=== PATIENT | male | born 1970 | race Caucasian/White ===

== ENCOUNTER 2023-12-20 14:35 | Emergency (ER) | payer BC, OTHER ==
[~2023-12-20] VITALS: Ht 188 cm; Wt 98.0 kg
[2023-12-20 19:42] VITALS: BP 140/62; PULSE 63; RESP 18; TEMP 98.2; O2SAT 97
== END 2023-12-20 20:11 | disposition short-term general hospital (02) ==
LOC: ER 14:35 → EDBD 14:35 → ER 20:11
DX: M51.369 Other intervertebral disc degeneration, lumbar region without mention of lumbar back pain or lower extremity pain (principal); R20.2 Paresthesia of skin

== ENCOUNTER 2024-03-23 04:16 | Inpatient (IN) | payer BC, MEDICAID ==
[~2024-03-23] VITALS: Ht 180.3 cm; Wt 67.0 kg
[2024-03-23 05:44] VITALS: PULSE 66; RESP 11; O2SAT 96
--- NOTE | 2024-03-23 06:00 | DVH ---
Exam: CT CT AB PEL WO CON-NO ORAL OR IV History: Flank pain, history of hematuria in solitary kidney Comparison Study: None available at time of dictation. TECHNIQUE: Multidetector CT of the abdomen and pelvis was performed from lung bases to ischial tubero sities. Imaging was performed without IV contrast using axial images. Coronal and sagittal reformats were obtained from the axial data set by the technologist. Radiation Dose Information: CT Dose: CTDI volume is 24.9 mGy. Dose-length product is 1431.75 mGy*cm FINDINGS: Evaluation of solid organs is limited due to lack of intravenous contrast use. Findings: Lung Bases: Left lower lobe atelectasis. Normal heart size. Coronary artery disease. No pleural or p ericardial effusion. Liver: The liver is normal in size. No focal lesions. Gallbladder and Biliary Tree: The gallbladder is unremarkable. No evidence of biliary ductal dilatati on. Spleen: Unremarkable Pancreas: The pancreas is grossly normal in appearance. Adrenal Glands: Unremarkable Kidneys: Left kidney is absent. There is a nonobstructive calculus in the lower pole of the right kid chinedu measuring 2 mm. There is mild dilatation of the proximal ureter with fat stranding. There is a cy st in the lower pole of the right kidney measuring 2.0 cm. The left kidney is absent. GI Tract: The stomach is grossly normal in appearance. Small bowel and colon are normal in caliber an d distribution. Normal appendix is visualized in the right lower quadrant without findings of append icitis. Peritoneal cavity: No pneumoperitoneum. No ascites. There is a calcified nodule in the right lower pe lvis. Lymphadenopathy: No mesenteric, retroperitoneal or periportal lymphadenopathy. Abdominal Wall and Mesentery: Soft tissue thickening in the bilateral anterior abdominal wall. Vasculature: The visualized abdominal aorta is normal in size and caliber. Evaluation of abdominal a nd pelvic vessels is limited due to lack of intravenous contrast. Pelvic Organs: Unremarkable Urinary Bladder: Grossly unremarkable for degree of distention. Musculoskeletal: No aggressive focal bony lesions, acute fractures or dislocation. Soft tissues: There are bilateral fat containing inguinal hernias. There is a fat containing umbilic al hernia. There is posterior fusion at T10-T11 bilateral rods and screws. IMPRESSION: 1. Very mild right hydroureter and periureteral fat stranding. Findings may reflect a urinary tract i nfection. There is a 2 mm nonobstructive right renal calculus. Radiation optimization: All CT scans at this facility use at least one of these dose optimization ronald hniques: automated exposure control mA and/or kV adjustment per patient size (includes targeted exam s where dose is matched to clinical indication) or iterative reconstruction.
[2024-03-23 06:08] LABS: Basophils # (auto) 0 10 ^3/uL (0-0.2); Basophils % (auto) 0.5 % (0.0-2.0); Eosinophils # (auto) 0.4 10 ^3/uL (0-0.8); Eosinophils % (auto) 4.8 % (0.0-7.0); Hematocrit 43.4 % (41.0-53.0); Hemoglobin 14.5 g/dL (13.5-17.5); Lymphocytes # (auto) 1.1 10 ^3/uL (0.4-5.4); Lymphocytes % (auto) 12.4 % (10.0-50.0); Mean Corpuscular Hemoglobin 28.1 pg (28.0-32.0); Mean Corpuscular Hgb Conc. 33.3 g/dL (32.0-36.0); Mean Corpuscular Volume 84.2 fL (80.0-100.0); Monocytes # (auto) 0.5 10 ^3/uL (0-1.3); Monocytes % (auto) 6.2 % (0.0-12.0); Neutrophils # (auto) 6.6 10 ^3/uL (1.6-8.6); Neutrophils % (auto) 76.1 % (37.0-80.0); Nucleated Red Blood Cells % 0.1 %; Platelet Count (auto) 252 10^3/uL (140-450); Red Blood Cells 5.15 10^6/uL (4.5-5.90); Red Cell Distribution Width 15.2 % (11.8-14.3); White Blood Cell 8.6 10^3/uL (4.4-10.8)
[2024-03-23 06:28] LABS: Anion Gap 11 (5-15); BUN/Creatinine Ratio 16.3 (10.0-20.0); Carbon Dioxide 26 mmol/L (20-31); Chloride 105 mmol/L (98-107); Potassium 4.1 mmol/L (3.5-5.1); Sodium 142 mmol/L (136-145)
[2024-03-23 06:30] LABS: Alanine Aminotransferase < 9 U/L (7-40); Alkaline Phosphatase 120 U/L (46-116); Aspartate Aminotransferase 10 U/L (13-40); Bilirubin, Total 0.3 mg/dL (0.2-1.0); Blood Urea Nitrogen 28 mg/dL (9-23); Calcium 11.4 mg/dL (8.7-10.4); Glucose 134 mg/dL (74-106)
[2024-03-23] MEDS: SODIUM CHLORIDE 0.9% 1,000 ML IV ONE ×2 (06:37→07:51)
[2024-03-23 06:38] LABS: Urine Bacteria None Seen /hpf (None Seen)
--- NOTE | 2024-03-23 06:45 | ED.PDOC ---
General HPI Comments 53 year old male NADEEN presents to the ED with chief complaint of flank pain. Patient reports that he has been experiencing left sided flank pain with associated hematuria for the past few days. Patient relays that he had surgery for his spine back in 12/20/2023 and had been placed on antibiotics due to having a UTI at the time. Patient states he only has his left kidney and had the right one removed along with a history of kidney stones. Patient notes he is currently bed ridden due to paralysis of his left leg and numbness to both legs, currently attending PT and OT for treatment. Patient denies any dysuria, fever, chills, abdominal pain, or N/V/D. Chief Complaint: Flank Pain Time Seen by MD: 06:38 Reviewed notes: Nurses Notes, Medications, Allergies Allergies: Coded Allergies: NO KNOWN ALLERGIES (Unverified , 12/20/23) Information Source: Patient Mode of Arrival: EMS Severity: Moderate Inability to void: None Timing: Days Duration: Since onset Prehospital treatment: None Onset: Spontaneous Symptoms: Hematuria History of: UTI, Kidney stone Location: (L)Flank Penile discharge: None Modifying factors: None associated signs and symptoms: Flank Pain, Hematuria Past Medical History PAST MEDICAL HISTORY: DM, HTN, Kidney Stones Surgical History (Other): Spinal surgery x 12/2023, Rt nephrectomy Family History Family History: Reviewed,noncontributory to illness Social History Smoker: Non-Smoker Alcohol: Denies ETOH Use Drugs: Denies Drug Use Lives In: Home Constitutional: denies: chills, diaphoresis, fatigue, fever, malaise, sweats, weakness, others EENTM: denies: blurred vision, double vision, ear bleeding, ear discharge, ear drainage, ear pain, ear ringing, eye pain, eye redness, hearing loss, mouth pain, mouth swelling, nasal discharge, nose bleeding, nose congestion, nose pain, photophobia, tearing, throat pain, throat swelling, voice changes, others Respiratory: denies: cough, hemoptysis, orthopnea, SOB at rest, shortness of breath, SOB with excertion, stridor, wheezing, others Cardiovascular: denies: chest pain, dizzy spells, diaphoresis, Dyspnea on exertion, edema, irregular heart beat, left arm pain, lightheadedness, palpitations, PND, syncope, others Gastrointestinal: denies: abdomen distended, abdominal pain, blood streaked bowels, constipated, diarrhea, dysphagia, difficulty swallowing, hematemesis, melena, nausea, poor appetite, poor fluid intake, rectal bleeding, rectal pain, vomiting, others Genitourinary: reports: flank pain, hematuria; denies: burning, dysuria, frequency, incontinence, penile discharge, penile sore, pain, testicle pain, testicle swelling, urgency, others Neurological: denies: dizziness, fainting, headache, left sided numbness, left sided weakness, numbness, paresthesia, pre-existing deficit, right sided numbness, right sided weakness, seizure, speech problems, tingling, tremors, weakness, others Musculoskeletal: denies: back pain, gout, joint pain, joint swelling, muscle pain, muscle stiffness, neck pain, others Integumetry: denies: bruises, change in color, change in hair/nails, dryness, laceration, lesions, lumps, rash, wounds, others Allergic/Immunocompromised: denies: Difficulty Healing, Frequent Infections, Hives, Itching, others Hematologic/Lymphatic: denies: anemia, blood clots, easy bleeding, easy bruising, swollen glands, others Endocrine: denies: excessive hunger, excessive sweating, excessive thirst, excessive urination, flushing, intolerance to cold, intolerance to heat, unexplained weight gain, unexplained weight loss, others Psychiatric: denies: anxiety, bipolar disorder, depression, hopeless, panic disorder, schizophrenia, sleepless, suicidal, others All Other Systems: Reviewed and Negative Physical Exam General Appearance: Moderate Distress, Other (Increased BMI) HEENT: Normal ENT Inspection, PERRL/EOMI Neck: Full Range of Motion, Non-Tender, Normal, Normal Inspection Respiratory: Chest Non-Tender, Lungs Clear, No Accessory Muscle Use, No Respiratory Distress, Normal Breath Sounds Cardiovascular: No Edema, No JVD, No Murmur, No Gallop, Normal Peripheral Pulses, Regular Rate/Rhythm Breast Exam: Deferred Gastrointestinal: No Organomegaly, Non Tender, No Pulsatile Mass, Normal Bowel Sounds, Soft Genitalia: Deferred Pelvic: Deferred Rectal: Deferred Extremities: Decreased range of motion (Left lower extremity), No calf tenderness, Normal capillary refill, Non-tender, No pedal edema Musculoskeletal : Apperance: Normal Neurologic: Alert, family medicine chair II-XII nml as Tested, Motor Weakness (Left lower extremity), Normal Affect Cerebellar Function: NOT DONE Reflexes: NOT DONE Skin: Dry, Normal Color, Warm Peripheral Pulses: 3+ Radial (R), 3+ Radial (L) Lymphatic: No Adenopathy Was a procedure done? Was a procedure done?: No Differential Diagnosis Kidney stone (Female): Musculoskeletal pain, Urinary obstruction, Urolithiasis Kidney stone (Male): Pyelonephritis, Urinary obstruction, Urolithiasis, Urinary tract infection X-Ray, Labs, Meds, VS Vital Signs Date Time Temp Pulse Resp B/P (MAP) Pulse Ox O2 Delivery O2 Flow Rate FiO2 03/23/24 05:44 66 11 96 Room Air* 0 21 03/23/24 04:45 98.7 60 11 115/69 (84) 96 98.7 03/23/24 04:27 97.7 70 16 138/76 (96) 96 Lab Test 03/23/24 05:20 03/23/24 05:18 Range/Units Urine Color Dark-brown Yellow Urine Clarity Ex.turbid Clear Urine pH 5.5 5.0-9.0 Urine Specific [place] 1.009 1.001-1.035 Urine Protein 2+ H Negative Urine Ketones Negative Negative Urine Blood 3+ H Negative /uL Urine Nitrite Negative Negative Urine Bilirubin Negative Negative Urine Urobilinogen Normal Negative mg/dL Urine Leukocyte Esterase 3+ Negative /uL Urine RBC 14 0 - 3 /hpf Urine WBC 3477 0 - 3 /hpf Urine WBC Clumps Present None Seen /hpf Urine Squamous Epithelial Cells None seen <5 /hpf Urine Bacteria None seen None Seen /hpf Urine Mucus Few None Seen Urine Glucose 3+ H Normal mg/dL White Blood Count 8.6 4.4-10.8 10^3/uL Red Blood Count 5.15 4.5-5.90 10^6/uL Hemoglobin 14.5 13.5-17.5 g/dL Hematocrit 43.4 41.0-53.0 % Mean Corpuscular Volume 84.2 80.0-100.0 fL Mean Corpuscular Hemoglobin 28.1 28.0-32.0 pg Mean Corpuscular Hemoglobin Concent 33.3 32.0-36.0 g/dL Red Cell Distribution Width 15.2 H 11.8-14.3 % Platelet Count 252 140-450 10^3/uL Mean Platelet Volume 8.2 6.9-10.8 fL Neutrophils (%) (Auto) 76.1 37.0-80.0 % Lymphocytes (%) (Auto) 12.4 10.0-50.0 % Monocytes (%) (Auto) 6.2 0.0-12.0 % Eosinophils (%) (Auto) 4.8 0.0-7.0 % Basophils (%) (Auto) 0.5 0.0-2.0 % Neutrophils # (Auto) 6.6 1.6-8.6 10 ^3/uL Lymphocytes # (Auto) 1.1 0.4-5.4 10 ^3/uL Monocytes # (Auto) 0.5 0-1.3 10 ^3/uL Eosinophils # (Auto) 0.4 0-0.8 10 ^3/uL Basophils # (Auto) 0 0-0.2 10 ^3/uL Nucleated Red Blood Cells 0.1 % Sodium Level 142 136-145 mmol/L Potassium Level 4.1 3.5-5.1 mmol/L Chloride Level 105 98-107 mmol/L Carbon Dioxide Level 26 20-31 mmol/L Anion Gap 11 5-15 Blood Urea Nitrogen 28 H 9-23 mg/dL Creatinine 1.72 H 0.700-1.30 mg/dL Glomerular Filtration Rate Calc 47 >90 mL/min BUN/Creatinine Ratio 16.3 10.0-20.0 Serum Glucose 134 H 74-106 mg/dL Calcium Level 11.4 H 8.7-10.4 mg/dL Total Bilirubin 0.3 0.2-1.0 mg/dL Aspartate Amino Transferase (AST) 10 L 13-40 U/L Alanine Aminotransferase (ALT) < 9 7-40 U/L Alkaline Phosphatase 120 H 46-116 U/L Total Protein 7.0 5.7-8.2 g/dL Albumin 4.0 3.2-4.8 g/dL Current Medications Medications (Trade) Dose Ordered Sig/Dottie Route Start Time Stop Time Status Last Admin Sodium Chloride 1,000 ml @ 1,000 mls/hr Q1H ONCE IV 03/23/24 06:30 03/23/24 07:29 03/23/24 06:37 Patient alert. Complaining of flank pain. Vitals stable. Answering all questions. He did have fall injury causing surgery. Reviewed his previous visit. Establish intravenous access. Was given fluids. WBC within normal limits. UA shows UTI. Was given Rocephin. CT scan of the abdomen reviewed does show small kidney stone. Explained to the patient. Continue cardiac monitoring. CT Abd/Pel: FINDINGS: Evaluation of solid organs is limited due to lack of intravenous contrast use. Findings: Lung Bases: Left lower lobe atelectasis. Normal heart size. Coronary artery disease. No pleural or pericardial effusion. Liver: The liver is normal in size. No focal lesions. Gallbladder and Biliary Tree: The gallbladder is unremarkable. No evidence of biliary ductal dilatation. Spleen: Unremarkable Pancreas: The pancreas is grossly normal in appearance. Adrenal Glands: Unremarkable Kidneys: Left kidney is absent. There is a nonobstructive calculus in the lower pole of the right kidney measuring 2 mm. There is mild dilatation of the proximal ureter with fat stranding. There is a cyst in the lower pole of the right kidney measuring 2.0 cm. The left kidney is absent. GI Tract: The stomach is grossly normal in appearance. Small bowel and colon are normal in caliber and distribution. Normal appendix is visualized in the right lower quadrant without findings of appendicitis. Peritoneal cavity: No pneumoperitoneum. No ascites. There is a calcified nodule in the right lower pelvis. Lymphadenopathy: No mesenteric, retroperitoneal or periportal lymphadenopathy. Abdominal Wall and Mesentery: Soft tissue thickening in the bilateral anterior abdominal wall. Vasculature: The visualized abdominal aorta is normal in size and caliber. Evaluation of abdominal and pelvic vessels is limited due to lack of intravenous contrast. Pelvic Organs: Unremarkable Urinary Bladder: Grossly unremarkable for degree of distention. Musculoskeletal: No aggressive focal bony lesions, acute fractures or dislocation. Soft tissues: There are bilateral fat containing inguinal hernias. There is a fat containing umbilical hernia. There is posterior fusion at T10-T11 bilateral rods and screws. IMPRESSION: 1. Very mild right hydroureter and periureteral fat stranding. Findings may reflect a urinary tract infection. There is a 2 mm nonobstructive right renal calculus. 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 Departure 1 Departure Time of Disposition: 06:57 Impression: Primary Impression: Sepsis due to urinary tract infection Disposition: ADMITTED INPATIENT Admit to: Med Surg Condition: Guarded Critical Care Note Critical Care Time?: No Stability Stability form required: No Heart Score Heart Score: Heart Score Response (Comments) Value History N/A 0 EKG N/A 0 Age N/A 0 Risk Factors N/A 0 Troponin N/A 0 Total 0 I personally scribed for THERESA BRAND MD ([email or web address]) on 03/23/24 at 06:45. Electronically submitted by [place] ([email or web address]). THERESA BRAND MD Mar 23, 2024 06:45
[2024-03-23 06:53] LABS: Urine Blood 3+ /uL (Negative); Urine Clarity Ex.Turbid (Clear); Urine Color Dark-Brown (Yellow); Urine Mucus FEW (None Seen); Urine Protein, UAD 2+ (Negative); Urine Specific Gravity 1.009 (1.001-1.035); Urine Squamous Epithelial Cell None Seen /hpf (<5); Urine Urobilinogen Normal (Negative); Urine WBC 3477 /hpf (0 - 3); Urine WBC Clumps PRESENT /hpf (None Seen); Urine pH 5.5 (5.0-9.0)
[2024-03-23] MEDS: cefTRIAXone 1GM/50ML D5W 50 ML IV ONE ×2 (07:09→14:16)
[2024-03-23 07:24] VITALS: PULSE 68; RESP 11; O2SAT 93
[2024-03-23] MEDS ORDERED: DEXTROSE (50%) 50ML SYRG IV PRN (13:15)
[2024-03-23] MEDS ORDERED: MORPHINE SULFATE INJ 2 MG/ml SYRG IV PRN (13:15)
[2024-03-23] MEDS ORDERED: NITROGLYCERIN 0.4 MG SL TAB SL PRN (13:15)
[2024-03-23] MEDS ORDERED: ACETAMINOPHEN 325 MG TAB PO PRN (13:15)
[2024-03-23] MEDS ORDERED: ONDANSETRON HCL 4 MG/2 ML VIAL IV PRN (13:15)
--- NOTE | 2024-03-23 13:35 | DVH ---
CHEST RADIOGRAPH Indication: pain Technique: Single frontal view of the chest was obtained Comparison: None FINDINGS: Lines and Tubes: None Lungs: No focal consolidation. Pleura: No effusion. No pneumothorax. Cardiomediastinal contours: Unremarkable Bones: No acute osseous abnormality. IMPRESSION: No acute cardiopulmonary disease.
--- NOTE | 2024-03-23 13:36 | DVHHP2 ---
History of Present Illness Reason for Visit: Left flank pain History of Present Illness Thom Silver is a 53-year-old male with past medical history of hypertension, hyperlipidemia, diabetes, born with only a left kidney, kidney stones, urinary incontinence, spinal cord injury status post spinal surgery due to a fall on December 28, 2023, and PTCA x2 in 2017 who presents to the ED for left flank pain since Friday. Patient reports that he went to see his primary and was given antibiotics but reports that he is here because of the progressive pain and notice blood in his urine. Patient reports that he is bed ridden, has no sensation to his feet lower extremities but is able to move his right foot and wiggle his left toes. Patient denies any chest pain, shortness of breath, nausea, vomiting, diarrhea, lightheadedness, fever, chills, and dizziness. Patient reports that he lives with his dad who is blind and disabled and needs support at home. Cardiovascular: HTN, hyperipidemia Renal/: Other (Kidney stones) Endocrine: Diabetes Family History: Other (Dad blind, mom with diabetes now ) Smoke: No ALCOHOL: none Drugs: None Lives: with Family Domestic Violence: Neg Review of Systems Constitutional: Yes: Other (Paraplegic); No: Fever, Chills, Sweats, Weakness, Malaise Eyes: No: Pain, Vision change, Conjunctivae inflammation, Eyelid inflammation, Other, Redness ENT: No: Ear pain, Ear discharge, Nose pain, Nose discharge, Nose congestion, Mouth pain, Mouth swelling, Throat pain, Throat swelling, Other Respiratory: No: Cough, Dry, Shortness of breath, SOB with excertion, Wheezing, Hemoptysis, Pleuritic Pain, Sputum, Wheezing, Other Cardiovascular: No: Chest Pain, Palpitations, Orthopnea, Paroxysmal Noc. Dyspnea, Edema, Lt Headedness, Other Gastrointestinal: No: Nausea, Vomiting, Abdominal Pain, Diarrhea, Constipation, Melena, Hematochezia, Other Genitourinary: No Dysuria, No Frequency, No Incontinence; Hematuria; No Retention, No Other Musculoskeletal: No: other, neck pain, shoulder pain, arm pain, back pain, hand pain, leg pain, foot pain Skin: No: Rash, Lesions, Jaundice, Bruising, Other Neurological: No: Weakness, Numbness, Incoordination, Change in speech, Confusion, Seizures, Other Other Left flank pain Allergies: Coded Allergies: NO KNOWN ALLERGIES (Unverified , 12/20/23) Medications Current Medications Medications Dose Ordered Sig/Dottie Route Start Time Stop Time Status Last Admin Dose Admin Sodium Chloride 1,000 ml @ 100 mls/hr Q10H IV 03/23/24 13:15 UNV Acetaminophen/ Hydrocodone Bitart 1 tab Q4HP PRN PO 03/23/24 13:15 UNV Ondansetron HCl 4 mg Q4HP PRN IV 03/23/24 13:15 UNV Acetaminophen 650 mg Q6HP PRN PO 03/23/24 13:15 UNV Morphine Sulfate 2 mg Q4HPRN PRN IV 03/23/24 13:15 UNV Nitroglycerin 0.4 mg Q5MINP PRN SL 03/23/24 13:15 UNV Morphine Sulfate 2 mg Q30M PRN IV 03/23/24 13:15 UNV Diagnostic Test (Pha) 1 strip ACHS 03/23/24 17:00 UNV Insulin Human Regular ACHS SC 03/23/24 17:00 UNV Dextrose 50 ml UD PRN IV 03/23/24 13:15 UNV Exam Vital Signs Vital Signs Date Time Temp Pulse Resp B/P (MAP) Pulse Ox O2 Delivery O2 Flow Rate FiO2 03/23/24 12:00 69 14 147/78 (101) 93 03/23/24 07:24 97.9 97.9 03/23/24 07:24 Room Air* 0 21 General Appearance: Alert, Oriented X3, Cooperative, No acute distress HEENT: Atraumatic, PERRLA, EOMI, Mucous membr. moist/pink Respiratory: Clear to auscultation, Normal air movement Cardiovascular: Regular rate, Normal S1, Normal S2, No murmurs Abdominal: Normal bowel sounds, Soft, No tenderness, No hepatospenomegaly, No masses Extremities: No clubbing, No cyanosis, No edema, Normal pulses, No tenderness/swelling Skin: No significant lesion Neuro: Normal speech, Normal tone Psych/Mental Status: Mental status NL, Mood NL Labs/Xrays Labs Test 03/23/24 05:20 03/23/24 05:18 Range/Units Urine Color Dark-brown Yellow Urine Clarity Ex.turbid Clear Urine pH 5.5 5.0-9.0 Urine Specific [place] 1.009 1.001-1.035 Urine Protein 2+ H Negative Urine Ketones Negative Negative Urine Blood 3+ H Negative /uL Urine Nitrite Negative Negative Urine Bilirubin Negative Negative Urine Urobilinogen Normal Negative mg/dL Urine Leukocyte Esterase 3+ Negative /uL Urine RBC 14 0 - 3 /hpf Urine WBC 3477 0 - 3 /hpf Urine WBC Clumps Present None Seen /hpf Urine Squamous Epithelial Cells None seen <5 /hpf Urine Bacteria None seen None Seen /hpf Urine Mucus Few None Seen Urine Glucose 3+ H Normal mg/dL White Blood Count 8.6 4.4-10.8 10^3/uL Red Blood Count 5.15 4.5-5.90 10^6/uL Hemoglobin 14.5 13.5-17.5 g/dL Hematocrit 43.4 41.0-53.0 % Mean Corpuscular Volume 84.2 80.0-100.0 fL Mean Corpuscular Hemoglobin 28.1 28.0-32.0 pg Mean Corpuscular Hemoglobin Concent 33.3 32.0-36.0 g/dL Red Cell Distribution Width 15.2 H 11.8-14.3 % Platelet Count 252 140-450 10^3/uL Mean Platelet Volume 8.2 6.9-10.8 fL Neutrophils (%) (Auto) 76.1 37.0-80.0 % Lymphocytes (%) (Auto) 12.4 10.0-50.0 % Monocytes (%) (Auto) 6.2 0.0-12.0 % Eosinophils (%) (Auto) 4.8 0.0-7.0 % Basophils (%) (Auto) 0.5 0.0-2.0 % Neutrophils # (Auto) 6.6 1.6-8.6 10 ^3/uL Lymphocytes # (Auto) 1.1 0.4-5.4 10 ^3/uL Monocytes # (Auto) 0.5 0-1.3 10 ^3/uL Eosinophils # (Auto) 0.4 0-0.8 10 ^3/uL Basophils # (Auto) 0 0-0.2 10 ^3/uL Nucleated Red Blood Cells 0.1 % Sodium Level 142 136-145 mmol/L Potassium Level 4.1 3.5-5.1 mmol/L Chloride Level 105 98-107 mmol/L Carbon Dioxide Level 26 20-31 mmol/L Anion Gap 11 5-15 Blood Urea Nitrogen 28 H 9-23 mg/dL Creatinine 1.72 H 0.700-1.30 mg/dL Glomerular Filtration Rate Calc 47 >90 mL/min BUN/Creatinine Ratio 16.3 10.0-20.0 Serum Glucose 134 H 74-106 mg/dL Calcium Level 11.4 H 8.7-10.4 mg/dL Total Bilirubin 0.3 0.2-1.0 mg/dL Aspartate Amino Transferase (AST) 10 L 13-40 U/L Alanine Aminotransferase (ALT) < 9 7-40 U/L Alkaline Phosphatase 120 H 46-116 U/L Total Protein 7.0 5.7-8.2 g/dL Albumin 4.0 3.2-4.8 g/dL Exam: CT CT AB PEL WO CON-NO ORAL OR IV History: Flank pain, history of hematuria in solitary kidney Comparison Study: None available at time of dictation. TECHNIQUE: Multidetector CT of the abdomen and pelvis was performed from lung bases to ischial tuberosities. Imaging was performed without IV contrast using axial images. Coronal and sagittal reformats were obtained from the axial data set by the technologist. Radiation Dose Information: CT Dose: CTDI volume is 24.9 mGy. Dose-length product is 1431.75 mGy*cm FINDINGS: Evaluation of solid organs is limited due to lack of intravenous contrast use. Findings: Lung Bases: Left lower lobe atelectasis. Normal heart size. Coronary artery disease. No pleural or pericardial effusion. Liver: The liver is normal in size. No focal lesions. Gallbladder and Biliary Tree: The gallbladder is unremarkable. No evidence of biliary ductal dilatation. Spleen: Unremarkable Pancreas: The pancreas is grossly normal in appearance. Adrenal Glands: Unremarkable Kidneys: Left kidney is absent. There is a nonobstructive calculus in the lower pole of the right kidney measuring 2 mm. There is mild dilatation of the proximal ureter with fat stranding. There is a cyst in the lower pole of the right kidney measuring 2.0 cm. The left kidney is absent. GI Tract: The stomach is grossly normal in appearance. Small bowel and colon are normal in caliber and distribution. Normal appendix is visualized in the right lower quadrant without findings of appendicitis. Peritoneal cavity: No pneumoperitoneum. No ascites. There is a calcified nodule in the right lower pelvis. Lymphadenopathy: No mesenteric, retroperitoneal or periportal lymphadenopathy. Abdominal Wall and Mesentery: Soft tissue thickening in the bilateral anterior abdominal wall. Vasculature: The visualized abdominal aorta is normal in size and caliber. Evaluation of abdominal and pelvic vessels is limited due to lack of intravenous contrast. Pelvic Organs: Unremarkable Urinary Bladder: Grossly unremarkable for degree of distention. Musculoskeletal: No aggressive focal bony lesions, acute fractures or dislocation. Soft tissues: There are bilateral fat containing inguinal hernias. There is a fat containing umbilical hernia. There is posterior fusion at T10-T11 bilateral rods and screws. IMPRESSION: 1. Very mild right hydroureter and periureteral fat stranding. Findings may reflect a urinary tract infection. There is a 2 mm nonobstructive right renal calculus. Assessment/Plan Assessment/Plan Assessment/Plan: Intractable flank pain likely secondary to acute pyelonephritis SARAH Hematuria Glucosuria Proteinuria UA Machuca catheterization IV antibiotics ceftriaxone + Zosyn NS 2 L given ED Wound culture Urine culture CT abdomen and pelvis Ultrasound kidney EKG Chest x-ray Troponins Antiemetics Pain management Labs A.m. labs 2 mm nonobstructive right renal calculus On tamsulosin Diabetes Hemoglobin A1c ISS and Accu-Cheks Chronic hypertension Continue home medications Chronic hyperlipidemia continue home medication History of spinal cord injury status post spinal surgery December of 2023 Bed ridden Follow up outpatient with PCP Obesity Counseled patient on lifestyle modifications, diet, and exercise FEN/PPX diet IVf DVT prophylaxis-patient bleeding, held PUD prophylaxis-Protonix, continue on home medication Admit to telemetry Home medications reconciled Discussed plan of care with patient and nurse Plan discussed with: Patient My Orders Orders - JORGE PALACIOS MGMT ANALYST Procedure Category Date Status Time *[facility] CONS 03/23/24 Transmitted -[place] 13:05 Admit ADMIT 03/23/24 Transmitted 13:05 Allergies DONNA 03/23/24 In Process 13:05 Renal DIET 03/23/24 Transmitted Standard(2gna,3gk,Lopho) Lunch Sodium Chloride 0.9% PHA 03/23/24 Logged 13:15 Hydrocodone-Acet PHA 03/23/24 Logged 5/325mg Tab ([place] 13:15 Ondansetron Hcl PHA 03/23/24 Logged (Zofran) 13:15 Complete Blood Count LAB 03/24/24 Verified 04:00 Comprehensive LAB 03/24/24 Verified Metabolic Panel 04:00 Acetaminophen Tablet PHA 03/23/24 Logged (Tylenol Tablet) 13:15 Morphine Sulfate PHA 03/23/24 Logged Injection 13:15 Nitroglycerin PHA 03/23/24 Logged Sublingual (Ntrostat 13:15 Morphine Sulfate PHA 03/23/24 Logged Injection 13:15 Stat Ekg For Chest [facility] 03/23/24 In Process Pain 13:05 Notify Md Of Changes [facility] 03/23/24 In Process From Base 13:05 Tester Sound For [facility] 03/23/24 In Process 24 Hours 13:05 Emergency Dysrhythmia [facility] 03/23/24 In Process Protocol 13:05 Rhythm Strips Once [facility] 03/23/24 In Process Every Shift 13:05 Oxygen By Nasal RT 03/23/24 Transmitted Cannula 13:05 Electrocardigram EKG 03/23/24 Logged 13:05 Chest Xray 1 View XY 03/23/24 Logged 13:05 Hemoglobin A1c LAB 03/23/24 In Process 13:05 Glucose Blood PHA 03/23/24 Logged (Accu-Chek Comfort 17:00 Insulin R (Human) PHA 03/23/24 Logged (Insulin R) 17:00 Dextrose 50% Syringe PHA 03/23/24 Logged 13:15 Troponin-I Hs LAB 03/23/24 In Process 13:05 Troponin-I Hs LAB 03/23/24 Logged 14:05 Troponin-I Hs LAB 03/23/24 Logged 16:05 Ceftriaxone 1gm/50ml PHA 03/24/24 Logged D5w (Rocephin) 09:00 Ceftriaxone 1gm/50ml PHA 03/23/24 Logged D5w (Rocephin) 13:15 Piperacillin-Tazob PHA 03/23/24 Logged 3.375gm (Zosyn 3.375g 22:00 Date of Service: Mar 23, 2024 Billing Provider: JORGE PALACIOS Common Visit Codes: [id number] INP/OBS CARE (HIGH) JORGE PALACIOS Mar 23, 2024 13:36
[2024-03-23] MEDS ORDERED: GABA-1250 PO (13:38)
[2024-03-23] MEDS ORDERED: CLON0.1T PO (13:38)
[2024-03-23] MEDS ORDERED: ROSU5TAB24 PO (13:38)
[2024-03-23] MEDS ORDERED: FURO40TA4 PO (13:38)
[2024-03-23] MEDS ORDERED: METH-1182 PO (13:38)
[2024-03-23] MEDS ORDERED: CARV3.1240 PO (13:38)
[2024-03-23] MEDS ORDERED: TAMS0.4C39 PO (13:38)
[2024-03-23] MEDS ORDERED: AMLO1TAB22 PO (13:38)
[2024-03-23] MEDS ORDERED: LISI40TA16 PO (13:38)
[2024-03-23] MEDS ORDERED: ISOS1TAB28 PO (13:38)
[2024-03-23] MEDS ORDERED: PANT40T PO (13:38)
[2024-03-23] MEDS: SODIUM CHLORIDE 0.9% 1,000 ML IV SCH (13:50)
--- NOTE | 2024-03-23 14:04 | DVH ---
RENAL ULTRASOUND CLINICAL HISTORY: flank pain TECHNIQUE: Multiple ultrasound images of the kidneys and bladder were obtained. COMPARISON: CT abdomen 03/23/2024 FINDINGS: There is no kidney identified in the left renal fossa on ultrasound. The right kidney measures 15.8 c m in length. There is a 2.3 cm right lower pole renal cysts. The right kidney demonstrates appropriat e echotexture and cortical thickness. There is no evidence of nephrolithiasis or hydronephrosis. There is a Mach[place] catheter in the bladder which is decompressed. IMPRESSION: 1. 2.3 cm right lower pole renal cysts. The right kidney otherwise appears within normal limits by mary jo. 2. There is no kidney identified in the left renal fossa on ultrasound. Clinical correlation is recom mended. HS:Y
[2024-03-23] MEDS: ACCU-CHEK COMFORT CURVE STRIP VI SCH (17:00)
[2024-03-23] MEDS: InsuLIN REG 1unit/0.01ml Soln (100units/ml) SC SCH (17:05)
[2024-03-23] MEDS: HYDROcodone-ACET 5/325MG TAB PO PRN (18:31)
[2024-03-23 20:06] VITALS: PULSE 65; RESP 19; O2SAT 93
[2024-03-23] MEDS: MORPHINE SULFATE INJ 2 MG/ml SYRG IV PRN (21:27)
[2024-03-23] MEDS: PIPERACILLIN-TAZOB 3.375GM 100 ML IV SCH (22:13)
[2024-03-24] VITALS (9 sets, daily range): BP systolic 126–150; BP diastolic 67–88; PULSE 54–79; RESP 17–19; TEMP 97.4–98.5; O2SAT 93–99
[2024-03-24] MEDS: cefTRIAXone 1GM/50ML D5W 50 ML IV SCH (11:33)
--- NOTE | 2024-03-24 11:41 | DVHPN2 ---
Reviewed: Care Plan, H&P, Labs, Medications, Previous Orders, Radiology Changes from previous H/P or p: No Changes Eyes: No Pain, No Vision change, No Conjunctivae inflammation, No Eyelid inflammation, No Other, No Redness ENT: No Ear pain, No Ear discharge, No Nose pain, No Nose discharge, No Nose congestion, No Mouth pain, No Mouth swelling, No Throat pain, No Throat swelling, No Other Cardiovascular: No Chest Pain, No Palpitations, No Orthopnea, No Paroxysmal Noc. Dyspnea, No Edema, No Lt Headedness, No Other Respiratory: No Cough, No Dry, No Shortness of breath, No SOB with excertion, No Wheezing, No Hemoptysis, No Pleuritic Pain, No Sputum, No Other Gastrointestinal: No Nausea, No Vomiting, No Abdominal Pain, No Diarrhea, No Constipation, No Melena, No Hematochezia, No Other Genitourinary: No Dysuria, No Frequency, No Incontinence; Hematuria; No Retention, No Other Musculoskeletal: No other, No neck pain, No shoulder pain, No arm pain, No back pain, No hand pain, No leg pain, No foot pain Skin: No Rash, No Lesions, No Jaundice, No Bruising, No Other Objective Vitals Vital Signs Date Time Temp Pulse Resp B/P (MAP) Pulse Ox O2 Delivery O2 Flow Rate FiO2 03/24/24 09:12 97.4 64 18 145/71 (95) 95 97.4 03/24/24 08:00 Room Air* 0 21 Intake/Output Intake and Output 03/24/24 07:00 Intake Total 3090 ml Balance 3090 ml Intake Oral 240 ml IV Total 2850 ml Medications Current Medications Medications Dose Ordered Sig/Dottie Route Start Time Stop Time Status Last Admin Dose Admin Sodium Chloride 1,000 ml @ 100 mls/hr Q10H IV 03/23/24 13:15 03/23/24 23:37 100 MLS/HR Acetaminophen/ Hydrocodone Bitart 1 tab Q4HP PRN PO 03/23/24 13:15 03/23/24 18:31 1 TAB Ondansetron HCl 4 mg Q4HP PRN IV 03/23/24 13:15 Acetaminophen 650 mg Q6HP PRN PO 03/23/24 13:15 Morphine Sulfate 2 mg Q4HPRN PRN IV 03/23/24 13:15 03/23/24 21:27 2 MG Nitroglycerin 0.4 mg Q5MINP PRN SL 03/23/24 13:15 Morphine Sulfate 2 mg Q30M PRN IV 03/23/24 13:15 Diagnostic Test (Pha) 1 strip ACHS 03/23/24 17:00 03/24/24 07:30 1 STRIP Insulin Human Regular ACHS SC 03/23/24 17:00 03/24/24 07:34 4 UNITS Dextrose 50 ml UD PRN IV 03/23/24 13:15 Ceftriaxone Sodium 50 ml @ 100 mls/hr DAILY@09 IV 03/24/24 09:00 03/24/24 11:33 100 MLS/HR Piperacillin Sod/ Tazobactam Sod 100 ml @ 25 mls/hr Q8HR IV 03/23/24 22:00 03/24/24 07:27 25 MLS/HR Laboratory Results Laboratory Tests 03/23/24 05:18 Urinalysis Test 03/23/24 05:20 Urine Color Dark-brown (Yellow) Urine Clarity Ex.turbid (Clear) Urine pH 5.5 (5.0-9.0) Urine Specific [place] 1.009 (1.001-1.035) Urine Protein 2+ (Negative) H Urine Ketones Negative (Negative) Urine Blood 3+ /uL (Negative) H Urine Nitrite Negative (Negative) Urine Bilirubin Negative (Negative) Urine Urobilinogen Normal mg/dL (Negative) Urine Leukocyte Esterase 3+ /uL (Negative) Urine RBC 14 /hpf (0 - 3) Urine WBC 3477 /hpf (0 - 3) Urine WBC Clumps Present /hpf (None Seen) Urine Squamous Epithelial Cells None seen /hpf (<5) Urine Bacteria None seen /hpf (None Seen) Urine Mucus Few (None Seen) Urine Glucose 3+ mg/dL (Normal) H Microbiology Microbiology Date/Time Source Procedure Growth Status 03/23/24 05:20 Voided Urine Urine Culture - Preliminary Resulted Labs and/or images reviewed: Labs reviewed by me, Image(s) reviewed by me Assessment/Plan Assessment/Plan Sepsis secondary to acute urinary tract infection Acute UTI and pyelonephritis: Blood cultures urine cultures Rocephibud Funessyn Acute left flank pain History of L-spine surgery for bulging discs and mechanical fall had surgery on 12/28/2023 at [facility] with a stay from 12/20/2023 to 02-24-24, and subsequent long-term stay Born with solitary right kidney Hypotension Diabetes Hypercholesterolemia History of kidney stones Urinary incontinence Paraplegia History of cardiac stents Chronic bedridden Chronic malnutrition Time Spent 70 minutes Patient is full code Advanced care planning time 20 mts Discussed with the patient's [id number] Paula on the phone per patient's request Plan discussed with: Patient My Orders Orders - MAR GARCIA MD Procedure Category Date Status Time Blood Culture SOBIA 03/24/24 Logged 11:18 Date of Service: Mar 24, 2024 Billing Provider: AMR GARCIA MD Common Visit Codes: [id number] CARE 30-74 MIN MAR GARCIA MD Mar 24, 2024 11:41
[2024-03-24 12:43] LABS: Basophils # (auto) 0 10 ^3/uL (0-0.2); Basophils % (auto) 0.4 % (0.0-2.0); Eosinophils # (auto) 0.4 10 ^3/uL (0-0.8); Eosinophils % (auto) 5.1 % (0.0-7.0); Hematocrit 44.8 % (41.0-53.0); Hemoglobin 14.6 g/dL (13.5-17.5); Lymphocytes % (auto) 11.3 % (10.0-50.0); Mean Corpuscular Hemoglobin 27.4 pg (28.0-32.0); Mean Corpuscular Hgb Conc. 32.5 g/dL (32.0-36.0); Mean Corpuscular Volume 84.2 fL (80.0-100.0); Monocytes # (auto) 0.5 10 ^3/uL (0-1.3); Monocytes % (auto) 6.2 % (0.0-12.0); Neutrophils # (auto) 6.6 10 ^3/uL (1.6-8.6); Platelet Count (auto) 251 10^3/uL (140-450); Red Blood Cells 5.32 10^6/uL (4.5-5.90); Red Cell Distribution Width 14.7 % (11.8-14.3); White Blood Cell 8.6 10^3/uL (4.4-10.8)
[2024-03-24 13:04] LABS: Albumin 4.1 g/dL (3.2-4.8); Anion Gap 8 (5-15); BUN/Creatinine Ratio 13.3 (10.0-20.0); Bilirubin, Total 0.3 mg/dL (0.2-1.0); Blood Urea Nitrogen 14 mg/dL (9-23); Carbon Dioxide 24 mmol/L (20-31); Potassium 4.2 mmol/L (3.5-5.1); Sodium 141 mmol/L (136-145)
[2024-03-24 13:10] LABS: Alanine Aminotransferase < 9 U/L (7-40); Alkaline Phosphatase 122 U/L (46-116); Aspartate Aminotransferase 9 U/L (13-40); Chloride 109 mmol/L (98-107); Glucose 153 mg/dL (74-106)
--- NOTE | 2024-03-24 18:11 | MEDREC ---
FORMERLY [facility] ASP Intervention Section I FORMERLY [facility], [facility] ASP Intervention: Duplication of therapy (PLEASE CONSIDER D/C CEFTRIAXONE OR ZOSYN (DUPLICATION OF THERAPY)) KHANG HERCULES PHARMACIST Mar 24, 2024 18:11
[2024-03-25] VITALS (8 sets, daily range): BP systolic 144–160; BP diastolic 75–91; PULSE 54–72; RESP 16–19; TEMP 97.4–98.8; O2SAT 95–100
[2024-03-25] MEDS: cloNIDine HCL 0.1 MG TAB PO ONE (06:10)
--- NOTE | 2024-03-25 10:54 | DVHPN2 ---
Reviewed: Care Plan, H&P, Labs, Medications, Previous Orders, Radiology Changes from previous H/P or p: No Changes Eyes: No Pain, No Vision change, No Conjunctivae inflammation, No Eyelid inflammation, No Other, No Redness ENT: No Ear pain, No Ear discharge, No Nose pain, No Nose discharge, No Nose congestion, No Mouth pain, No Mouth swelling, No Throat pain, No Throat swelling, No Other Cardiovascular: No Chest Pain, No Palpitations, No Orthopnea, No Paroxysmal Noc. Dyspnea, No Edema, No Lt Headedness, No Other Respiratory: No Cough, No Dry, No Shortness of breath, No SOB with excertion, No Wheezing, No Hemoptysis, No Pleuritic Pain, No Sputum, No Other Gastrointestinal: No Nausea, No Vomiting, No Abdominal Pain, No Diarrhea, No Constipation, No Melena, No Hematochezia, No Other Genitourinary: No Dysuria, No Frequency, No Incontinence; Hematuria; No Retention, No Other Musculoskeletal: No other, No neck pain, No shoulder pain, No arm pain, No back pain, No hand pain, No leg pain, No foot pain Skin: No Rash, No Lesions, No Jaundice, No Bruising, No Other Objective Vitals Vital Signs Date Time Temp Pulse Resp B/P (MAP) Pulse Ox O2 Delivery O2 Flow Rate FiO2 03/25/24 09:00 97.4 64 16 147/84 (105) 97 97.4 03/24/24 20:00 Room Air* 0 21 Intake/Output Intake and Output 03/25/24 07:00 Intake Total 2415 ml Output Total 3900 ml Balance -1485 ml Intake Oral 1565 ml IV Total 850 ml Output Urine Total 3900 ml Medications Current Medications Medications Dose Ordered Sig/Dottie Route Start Time Stop Time Status Last Admin Dose Admin Sodium Chloride 1,000 ml @ 100 mls/hr Q10H IV 03/23/24 13:15 03/25/24 00:15 100 MLS/HR Acetaminophen/ Hydrocodone Bitart 1 tab Q4HP PRN PO 03/23/24 13:15 03/23/24 18:31 1 TAB Ondansetron HCl 4 mg Q4HP PRN IV 03/23/24 13:15 Acetaminophen 650 mg Q6HP PRN PO 03/23/24 13:15 Morphine Sulfate 2 mg Q4HPRN PRN IV 03/23/24 13:15 03/23/24 21:27 2 MG Nitroglycerin 0.4 mg Q5MINP PRN SL 03/23/24 13:15 Morphine Sulfate 2 mg Q30M PRN IV 03/23/24 13:15 Diagnostic Test (Pha) 1 strip ACHS 03/23/24 17:00 03/25/24 06:12 1 STRIP Insulin Human Regular ACHS SC 03/23/24 17:00 03/25/24 06:11 2 UNITS Dextrose 50 ml UD PRN IV 03/23/24 13:15 Ceftriaxone Sodium 50 ml @ 100 mls/hr DAILY@09 IV 03/24/24 09:00 03/25/24 10:23 100 MLS/HR Piperacillin Sod/ Tazobactam Sod 100 ml @ 25 mls/hr Q8HR IV 03/23/24 22:00 Hold 03/24/24 14:32 25 MLS/HR Laboratory Results Laboratory Tests 03/24/24 12:08 Chemistry Test 03/24/24 12:08 Albumin 4.1 g/dL (3.2-4.8) Calcium Level 11.0 mg/dL (8.7-10.4) H Total Protein 7.0 g/dL (5.7-8.2) LFT Test 03/24/24 12:08 Alanine Aminotransferase (ALT) < 9 U/L (7-40) Alkaline Phosphatase 122 U/L (46-116) H Aspartate Amino Transferase (AST) 9 U/L (13-40) L Total Bilirubin 0.3 mg/dL (0.2-1.0) Urinalysis Test 03/23/24 05:20 Urine Color Dark-brown (Yellow) Urine Clarity Ex.turbid (Clear) Urine pH 5.5 (5.0-9.0) Urine Specific [place] 1.009 (1.001-1.035) Urine Protein 2+ (Negative) H Urine Ketones Negative (Negative) Urine Blood 3+ /uL (Negative) H Urine Nitrite Negative (Negative) Urine Bilirubin Negative (Negative) Urine Urobilinogen Normal mg/dL (Negative) Urine Leukocyte Esterase 3+ /uL (Negative) Urine RBC 14 /hpf (0 - 3) Urine WBC 3477 /hpf (0 - 3) Urine WBC Clumps Present /hpf (None Seen) Urine Squamous Epithelial Cells None seen /hpf (<5) Urine Bacteria None seen /hpf (None Seen) Urine Mucus Few (None Seen) Urine Glucose 3+ mg/dL (Normal) H Microbiology Microbiology Date/Time Source Procedure Growth Status 03/23/24 05:20 Voided Urine Urine Culture - Preliminary Resulted Labs and/or images reviewed: Labs reviewed by me, Image(s) reviewed by me Assessment/Plan Assessment/Plan Sepsis secondary to acute urinary tract infection Acute UTI and pyelonephritis: Blood cultures negative, urine cultures, continue Rocephin Zosyn Acute left flank pain History of L-spine surgery for bulging discs and mechanical fall had surgery on 12/28/2023 at [facility] with a stay from 12/20/2023 to 02-24-24, and subsequent custodial stay Born with solitary right kidney Hypotension Diabetes Hypercholesterolemia History of kidney stones Urinary incontinence Paraplegia History of cardiac stents Chronic bedridden Chronic malnutrition Time Spent 55 minutes Patient is full code Advanced care planning time 20 mts Discussed with the patient's [id number] [place] on the phone per patient's request Plan discussed with: Patient My Orders Orders - MAR GARCIA MD Procedure Category Date Status Time Blood Culture SOBIA 03/24/24 In Process 11:18 Date of Service: Mar 25, 2024 Billing Provider: MAR GARCIA MD Common Visit Codes: [id number] INP/OBS CARE(HIGH) MAR GARCIA MD Mar 25, 2024 10:54
--- NOTE | 2024-03-25 16:06 | DVHINCON2 ---
Date of service: Mar 25, 2024 Reason for Consultation SARAH History of Present Illness 53-year-old male past medical history of chronic kidney disease, solitary kidney since , history of kidney stones presented to the hospital complaining of urinary cloudiness dullness and pressure. He is found to have urinary tract infection. He is admitted for this reason. Nephrology consulted due to elevated creatinine level. He also reports that he had a fall in December of 2023 which resulted in the lumbar spinal injury which required surgery. He is currently has decreased motor and sensory function from the waist down and therefore is using a wheelchair. He currently has a [place]uca catheter Past Medical History as above Allergies: Coded Allergies: NO KNOWN ALLERGIES (Unverified , 12/20/23) Home Meds Reported Medications Gabapentin (Gabapentin) 300 Mg Cap, PO 03/23/24 Tamsulosin Hcl (Tamsulosin Hcl) 0.4 Mg Cap, 2 CAP PO DAILY 03/23/24 Pantoprazole Sodium Sesquihydr (Pantoprazole Sodium) 40 Mg Tab, 1 TAB PO DAILY 03/23/24 Rosuvastatin Calcium (Rosuvastatin Calcium) 5 Mg Tab, TAB PO 03/23/24 Amlodipine Besylate (Amlodipine Besylate) 5 Mg Tab, 1 TAB PO DAILY 03/23/24 Carvedilol (Carvedilol) 3.125 Mg Tab, 1 TAB PO BID 03/23/24 Isosorbide Mononitrate (Isosorbide Mononitrate Er) 30 Mg Tab, 1 TAB PO DAILY 03/23/24 Methocarbamol (Methocarbamol) 750 Mg Tab, 1 TAB PO TID PRN 03/23/24 Clonidine Hydrochloride (Clonidine Hcl) 0.1 Mg Tab, 1 TAB PO DAILY 03/23/24 Lisinopril (Lisinopril) 40 Mg Tab, 1 TAB PO BID 03/23/24 Furosemide (Furosemide) 40 Mg Tab, 1 TAB PO DAILY 03/23/24 Current Medications Current Medications Medications (Trade) Dose Ordered Sig/Dottie Route PRN Reason Start Time Stop Time Status Last Admin Amlodipine Besylate (Norvasc Tablet) 5 mg DAILY PO 03/26/24 10:00 Carvedilol (Coreg Tablet) 3.125 mg Q12HR PO 03/25/24 22:00 Gabapentin (Neurontin Capsule) 300 mg DAILY PO 03/26/24 10:00 Lisinopril (Zestril Tablet) 40 mg BID PO 03/25/24 22:00 Methocarbamol (Robaxin) 750 mg TIDPRN PRN PO FOR MUSCLE SPASM 03/25/24 11:45 Tamsulosin HCl (Flomax) 0.8 mg QPM PO 03/25/24 18:00 Family History: Diabetes mellitus G8 MOTHER Review of Systems Urinary cloudiness H&P Exam Vital Signs/I&O Vital Sign Date Time Temp Pulse Resp B/P (MAP) Pulse Ox O2 Delivery O2 Flow Rate FiO2 03/25/24 13:01 97.8 71 16 144/80 (101) 96 97.8 03/25/24 08:00 Room Air* 0 21 Intake and Output 03/24/24 03/25/24 19:00 07:00 Intake Total 1190 ml 1225 ml Output Total 1800 ml 2100 ml Balance -610 ml -875 ml Intake Oral 1040 ml 525 ml IV Total 150 ml 700 ml Output Urine Total 1800 ml 2100 ml Physical Exam Middle-aged white male Not in overt distress Abdomen is soft No pitting edema No ankle edema Machuca catheter has full clear yellow urine Decreased sensation bilateral lower extremities with 1/5 muscle strength Labs/Diagnostic Data Labs/Diagnostic Data Laboratory Tests Test 03/25/24 11:28 03/25/24 06:01 03/24/24 21:14 03/24/24 16:46 Range/Units POC Glucose 121 H 152 H 161 H 178 H 70-106 mg/dl Test 03/24/24 12:08 03/24/24 11:51 03/24/24 07:29 03/23/24 17:33 Range/Units White Blood Count 8.6 4.4-10.8 10^3/uL Red Blood Count 5.32 4.5-5.90 10^6/uL Hemoglobin 14.6 13.5-17.5 g/dL Hematocrit 44.8 41.0-53.0 % Mean Corpuscular Volume 84.2 80.0-100.0 fL Mean Corpuscular Hemoglobin 27.4 L 28.0-32.0 pg Mean Corpuscular Hemoglobin Concent 32.5 32.0-36.0 g/dL Red Cell Distribution Width 14.7 H 11.8-14.3 % Platelet Count 251 140-450 10^3/uL Mean Platelet Volume 8.1 6.9-10.8 fL Neutrophils (%) (Auto) 77.0 37.0-80.0 % Lymphocytes (%) (Auto) 11.3 10.0-50.0 % Monocytes (%) (Auto) 6.2 0.0-12.0 % Eosinophils (%) (Auto) 5.1 0.0-7.0 % Basophils (%) (Auto) 0.4 0.0-2.0 % Neutrophils # (Auto) 6.6 1.6-8.6 10 ^3/uL Lymphocytes # (Auto) 1.0 0.4-5.4 10 ^3/uL Monocytes # (Auto) 0.5 0-1.3 10 ^3/uL Eosinophils # (Auto) 0.4 0-0.8 10 ^3/uL Basophils # (Auto) 0 0-0.2 10 ^3/uL Nucleated Red Blood Cells 0.0 % Sodium Level 141 136-145 mmol/L Potassium Level 4.2 3.5-5.1 mmol/L Chloride Level 109 H 98-107 mmol/L Carbon Dioxide Level 24 20-31 mmol/L Anion Gap 8 5-15 Blood Urea Nitrogen 14 # 9-23 mg/dL Creatinine 1.05 0.700-1.30 mg/dL Glomerular Filtration Rate Calc 85 >90 mL/min BUN/Creatinine Ratio 13.3 10.0-20.0 Serum Glucose 153 H 74-106 mg/dL Calcium Level 11.0 H 8.7-10.4 mg/dL Total Bilirubin 0.3 0.2-1.0 mg/dL Aspartate Amino Transferase (AST) 9 L 13-40 U/L Alanine Aminotransferase (ALT) < 9 7-40 U/L Alkaline Phosphatase 122 H 46-116 U/L Total Protein 7.0 5.7-8.2 g/dL Albumin 4.1 3.2-4.8 g/dL POC Glucose 162 H 218 H 70-106 mg/dl Troponin I High Sensitivity 7 </=54 ng/L Test 03/23/24 16:45 03/23/24 15:03 03/23/24 05:20 03/23/24 05:18 Range/Units POC Glucose 191 H 70-106 mg/dl Troponin I High Sensitivity 8 5 </=54 ng/L Urine Color Dark-brown Yellow Urine Clarity Ex.turbid Clear Urine pH 5.5 5.0-9.0 Urine Specific [place] 1.009 1.001-1.035 Urine Protein 2+ H Negative Urine Ketones Negative Negative Urine Blood 3+ H Negative /uL Urine Nitrite Negative Negative Urine Bilirubin Negative Negative Urine Urobilinogen Normal Negative mg/dL Urine Leukocyte Esterase 3+ Negative /uL Urine RBC 14 0 - 3 /hpf Urine WBC 3477 0 - 3 /hpf Urine WBC Clumps Present None Seen /hpf Urine Squamous Epithelial Cells None seen <5 /hpf Urine Bacteria None seen None Seen /hpf Urine Mucus Few None Seen Urine Glucose 3+ H Normal mg/dL White Blood Count 8.6 4.4-10.8 10^3/uL Red Blood Count 5.15 4.5-5.90 10^6/uL Hemoglobin 14.5 13.5-17.5 g/dL Hematocrit 43.4 41.0-53.0 % Mean Corpuscular Volume 84.2 80.0-100.0 fL Mean Corpuscular Hemoglobin 28.1 28.0-32.0 pg Mean Corpuscular Hemoglobin Concent 33.3 32.0-36.0 g/dL Red Cell Distribution Width 15.2 H 11.8-14.3 % Platelet Count 252 140-450 10^3/uL Mean Platelet Volume 8.2 6.9-10.8 fL Neutrophils (%) (Auto) 76.1 37.0-80.0 % Lymphocytes (%) (Auto) 12.4 10.0-50.0 % Monocytes (%) (Auto) 6.2 0.0-12.0 % Eosinophils (%) (Auto) 4.8 0.0-7.0 % Basophils (%) (Auto) 0.5 0.0-2.0 % Neutrophils # (Auto) 6.6 1.6-8.6 10 ^3/uL Lymphocytes # (Auto) 1.1 0.4-5.4 10 ^3/uL Monocytes # (Auto) 0.5 0-1.3 10 ^3/uL Eosinophils # (Auto) 0.4 0-0.8 10 ^3/uL Basophils # (Auto) 0 0-0.2 10 ^3/uL Nucleated Red Blood Cells 0.1 % Sodium Level 142 136-145 mmol/L Potassium Level 4.1 3.5-5.1 mmol/L Chloride Level 105 98-107 mmol/L Carbon Dioxide Level 26 20-31 mmol/L Anion Gap 11 5-15 Blood Urea Nitrogen 28 H 9-23 mg/dL Creatinine 1.72 H 0.700-1.30 mg/dL Glomerular Filtration Rate Calc 47 >90 mL/min BUN/Creatinine Ratio 16.3 10.0-20.0 Serum Glucose 134 H 74-106 mg/dL Hemoglobin A1c 8.3 H <5.7 % A1C Calcium Level 11.4 H 8.7-10.4 mg/dL Total Bilirubin 0.3 0.2-1.0 mg/dL Aspartate Amino Transferase (AST) 10 L 13-40 U/L Alanine Aminotransferase (ALT) < 9 7-40 U/L Alkaline Phosphatase 120 H 46-116 U/L Total Protein 7.0 5.7-8.2 g/dL Albumin 4.0 3.2-4.8 g/dL Assessment Acute kidney injury hemodynamically mediated in the setting of sepsis hx solitary kidney Urinary tract infection Nonobstructing kidney stone acute Lumbar spine injury resulting in wheel chair Agree with IV fluid hydration IV antibiotics should be tailored towards his cultures Avoid hypotension His renal function is improving with medical therapy I recommend trial of void prior to discharge to ensure that patient does not have urinary obstruction due to a neurogenic bladder. If patient has greater than 150 cc postvoid then recommend place Machuca back in. At this time no further renal recommendations I will sign off the case. Patient has not outpatient nephrologists who I advised him to see after he is discharged Also recommend physical therapy evaluation as patient is requesting home services Plan discussed with: Patient DAVID MCGHEE MD Mar 25, 2024 16:06
[2024-03-25 16:22] LABS: Potassium 4.1 mmol/L (3.5-5.1); Sodium 139 mmol/L (136-145)
[2024-03-25 16:23] LABS: Anion Gap 10 (5-15)
[2024-03-25] MEDS: METHOCARBAMOL 500 MG TAB PO PRN (16:24)
[2024-03-25 16:28] LABS: BUN/Creatinine Ratio 13.3 (10.0-20.0); Blood Urea Nitrogen 12 mg/dL (9-23)
[2024-03-25 16:30] LABS: Carbon Dioxide 19 mmol/L (20-31); Chloride 110 mmol/L (98-107); Glucose 110 mg/dL (74-106)
[2024-03-25] MEDS: TAMSULOSIN HYDROCHLORIDE 0.4 MG CAP PO SCH (17:38)
[2024-03-25] MEDS: LISINOPRIL 20 MG TAB PO SCH (21:40)
[2024-03-25] MEDS: CARVEDILOL 3.125 MG TAB PO SCH (21:40)
[2024-03-26] VITALS (10 sets, daily range): BP systolic 143–168; BP diastolic 67–91; PULSE 55–78; RESP 16–20; TEMP 97.6–98.5; O2SAT 94–97
[2024-03-26 06:16] LABS: Sodium 139 mmol/L (136-145)
[2024-03-26 06:17] LABS: Anion Gap 10 (5-15); Carbon Dioxide 20 mmol/L (20-31)
[2024-03-26 06:22] LABS: BUN/Creatinine Ratio 11.2 (10.0-20.0); Blood Urea Nitrogen 11 mg/dL (9-23)
[2024-03-26 06:25] LABS: Calcium 11.1 mg/dL (8.7-10.4); Chloride 109 mmol/L (98-107); Glucose 170 mg/dL (74-106)
[2024-03-26] MEDS: amLODIPine BESYLATE 5 MG TAB PO SCH (09:16)
[2024-03-26] MEDS: GABAPENTIN 300 MG CAP PO SCH (09:16)
--- NOTE | 2024-03-26 12:09 | DVHPN2 ---
Reviewed: Care Plan, H&P, Labs, Medications, Previous Orders, Radiology Changes from previous H/P or p: No Changes Eyes: No Pain, No Vision change, No Conjunctivae inflammation, No Eyelid inflammation, No Other, No Redness ENT: No Ear pain, No Ear discharge, No Nose pain, No Nose discharge, No Nose congestion, No Mouth pain, No Mouth swelling, No Throat pain, No Throat swelling, No Other Cardiovascular: No Chest Pain, No Palpitations, No Orthopnea, No Paroxysmal Noc. Dyspnea, No Edema, No Lt Headedness, No Other Respiratory: No Cough, No Dry, No Shortness of breath, No SOB with excertion, No Wheezing, No Hemoptysis, No Pleuritic Pain, No Sputum, No Other Gastrointestinal: No Nausea, No Vomiting, No Abdominal Pain, No Diarrhea, No Constipation, No Melena, No Hematochezia, No Other Genitourinary: No Dysuria, No Frequency, No Incontinence; Hematuria; No Retention, No Other Musculoskeletal: No other, No neck pain, No shoulder pain, No arm pain, No back pain, No hand pain, No leg pain, No foot pain Skin: No Rash, No Lesions, No Jaundice, No Bruising, No Other Objective Vitals Vital Signs Date Time Temp Pulse Resp B/P (MAP) Pulse Ox O2 Delivery O2 Flow Rate FiO2 03/26/24 09:18 58 144/87 03/26/24 09:00 97.6 18 96 97.6 03/25/24 20:00 Room Air* 0 21 Intake/Output Intake and Output 03/26/24 07:00 Intake Total 2200 ml Output Total 1550 ml Balance 650 ml Intake Oral 1200 ml IV Total 1000 ml Output Urine Total 1550 ml Medications Current Medications Medications Dose Ordered Sig/Dottie Route Start Time Stop Time Status Last Admin Dose Admin Sodium Chloride 1,000 ml @ 100 mls/hr Q10H IV 03/23/24 13:15 03/26/24 11:15 100 MLS/HR Acetaminophen/ Hydrocodone Bitart 1 tab Q4HP PRN PO 03/23/24 13:15 03/23/24 18:31 1 TAB Ondansetron HCl 4 mg Q4HP PRN IV 03/23/24 13:15 Acetaminophen 650 mg Q6HP PRN PO 03/23/24 13:15 Morphine Sulfate 2 mg Q4HPRN PRN IV 03/23/24 13:15 03/23/24 21:27 2 MG Nitroglycerin 0.4 mg Q5MINP PRN SL 03/23/24 13:15 Morphine Sulfate 2 mg Q30M PRN IV 03/23/24 13:15 Diagnostic Test (Pha) 1 strip ACHS 03/23/24 17:00 03/26/24 11:43 1 STRIP Insulin Human Regular ACHS SC 03/23/24 17:00 03/26/24 11:44 3 UNITS Dextrose 50 ml UD PRN IV 03/23/24 13:15 Ceftriaxone Sodium 50 ml @ 100 mls/hr DAILY@09 IV 03/24/24 09:00 03/26/24 09:15 100 MLS/HR Piperacillin Sod/ Tazobactam Sod 100 ml @ 25 mls/hr Q8HR IV 03/23/24 22:00 Hold 03/24/24 14:32 25 MLS/HR Amlodipine Besylate 5 mg DAILY PO 03/26/24 10:00 03/26/24 09:16 5 MG Carvedilol 3.125 mg Q12HR PO 03/25/24 22:00 03/25/24 21:40 3.125 MG Gabapentin 300 mg DAILY PO 03/26/24 10:00 03/26/24 09:16 300 MG Lisinopril 40 mg BID PO 03/25/24 22:00 03/26/24 09:17 40 MG Methocarbamol 750 mg TIDPRN PRN PO 03/25/24 11:45 03/26/24 01:59 750 MG Tamsulosin HCl 0.8 mg QPM PO 03/25/24 18:00 03/25/24 17:38 0.8 MG Laboratory Results Laboratory Tests 03/24/24 12:08 03/26/24 04:47 Chemistry Test 03/25/24 15:52 03/26/24 04:47 Calcium Level 11.0 mg/dL (8.7-10.4) H 11.1 mg/dL (8.7-10.4) H Urinalysis Test 03/23/24 05:20 Urine Color Dark-brown (Yellow) Urine Clarity Ex.turbid (Clear) Urine pH 5.5 (5.0-9.0) Urine Specific [place] 1.009 (1.001-1.035) Urine Protein 2+ (Negative) H Urine Ketones Negative (Negative) Urine Blood 3+ /uL (Negative) H Urine Nitrite Negative (Negative) Urine Bilirubin Negative (Negative) Urine Urobilinogen Normal mg/dL (Negative) Urine Leukocyte Esterase 3+ /uL (Negative) Urine RBC 14 /hpf (0 - 3) Urine WBC 3477 /hpf (0 - 3) Urine WBC Clumps Present /hpf (None Seen) Urine Squamous Epithelial Cells None seen /hpf (<5) Urine Bacteria None seen /hpf (None Seen) Urine Mucus Few (None Seen) Urine Glucose 3+ mg/dL (Normal) H Microbiology Microbiology Date/Time Source Procedure Growth Status 03/24/24 12:08 Blood Blood Culture - Preliminary NO GROWTH AFTER 24 HOURS OF INCUBATION. Resulted 03/23/24 05:20 Voided Urine Urine Culture - Preliminary Resulted Labs and/or images reviewed: Labs reviewed by me, Image(s) reviewed by me Assessment/Plan Assessment/Plan Sepsis secondary to acute urinary tract infection Acute UTI and pyelonephritis: Blood cultures negative, urine cultures, continue Rocephin Zosyn Acute left flank pain History of L-spine surgery for bulging discs and mechanical fall had surgery on 12/28/2023 at [facility] with a stay from 12/20/2023 to 02-24-24, and subsequent [facility] stay Born with solitary right kidney Hypotension Diabetes Hypercholesterolemia History of kidney stones Urinary incontinence Paraplegia History of cardiac stents Chronic bedridden Chronic malnutrition Time Spent 55 minutes Patient is full code Advanced care planning time 20 mts Discussed with the patient's [id number] [place] on the phone per patient's request Plan discussed with: Patient Date of Service: Mar 26, 2024 Billing Provider: MAR GARCIA MD Common Visit Codes: [id number] INP/OBS CARE(HIGH) MAR GARCIA MD Mar 26, 2024 12:09
[2024-03-27] VITALS (7 sets, daily range): BP systolic 141–154; BP diastolic 61–88; PULSE 47–78; RESP 18–19; TEMP 97.6–98.8; O2SAT 93–99
--- NOTE | 2024-03-27 11:50 | DVHPN2 ---
Reviewed: Care Plan, H&P, Labs, Medications, Previous Orders, Radiology Changes from previous H/P or p: No Changes Eyes: No Pain, No Vision change, No Conjunctivae inflammation, No Eyelid inflammation, No Other, No Redness ENT: No Ear pain, No Ear discharge, No Nose pain, No Nose discharge, No Nose congestion, No Mouth pain, No Mouth swelling, No Throat pain, No Throat swelling, No Other Cardiovascular: No Chest Pain, No Palpitations, No Orthopnea, No Paroxysmal Noc. Dyspnea, No Edema, No Lt Headedness, No Other Respiratory: No Cough, No Dry, No Shortness of breath, No SOB with excertion, No Wheezing, No Hemoptysis, No Pleuritic Pain, No Sputum, No Other Gastrointestinal: No Nausea, No Vomiting, No Abdominal Pain, No Diarrhea, No Constipation, No Melena, No Hematochezia, No Other Genitourinary: No Dysuria, No Frequency, No Incontinence; Hematuria; No Retention, No Other Musculoskeletal: No other, No neck pain, No shoulder pain, No arm pain, No back pain, No hand pain, No leg pain, No foot pain Skin: No Rash, No Lesions, No Jaundice, No Bruising, No Other Objective Vitals Vital Signs Date Time Temp Pulse Resp B/P (MAP) Pulse Ox O2 Delivery O2 Flow Rate FiO2 03/27/24 09:16 97.8 64 19 152/69 (96) 97 97.8 03/26/24 20:00 Room Air* 0 21 Intake/Output Intake and Output 03/27/24 07:00 Intake Total 3200 ml Output Total 2900 ml Balance 300 ml Intake Oral 2150 ml IV Total 1050 ml Output Urine Total 2900 ml Medications Current Medications Medications Dose Ordered Sig/Dottie Route Start Time Stop Time Status Last Admin Dose Admin Sodium Chloride 1,000 ml @ 100 mls/hr Q10H IV 03/23/24 13:15 03/27/24 05:32 100 MLS/HR Acetaminophen/ Hydrocodone Bitart 1 tab Q4HP PRN PO 03/23/24 13:15 03/26/24 18:38 1 TAB Ondansetron HCl 4 mg Q4HP PRN IV 03/23/24 13:15 Acetaminophen 650 mg Q6HP PRN PO 03/23/24 13:15 Morphine Sulfate 2 mg Q4HPRN PRN IV 03/23/24 13:15 03/23/24 21:27 2 MG Nitroglycerin 0.4 mg Q5MINP PRN SL 03/23/24 13:15 Morphine Sulfate 2 mg Q30M PRN IV 03/23/24 13:15 Diagnostic Test (Pha) 1 strip ACHS 03/23/24 17:00 03/27/24 05:33 1 STRIP Insulin Human Regular ACHS SC 03/23/24 17:00 03/27/24 07:15 3 UNITS Dextrose 50 ml UD PRN IV 03/23/24 13:15 Ceftriaxone Sodium 50 ml @ 100 mls/hr DAILY@09 IV 03/24/24 09:00 03/27/24 09:07 100 MLS/HR Piperacillin Sod/ Tazobactam Sod 100 ml @ 25 mls/hr Q8HR IV 03/23/24 22:00 Hold 03/24/24 14:32 25 MLS/HR Amlodipine Besylate 5 mg DAILY PO 03/26/24 10:00 03/27/24 09:09 5 MG Carvedilol 3.125 mg Q12HR PO 03/25/24 22:00 03/27/24 09:09 3.125 MG Gabapentin 300 mg DAILY PO 03/26/24 10:00 03/27/24 09:09 300 MG Lisinopril 40 mg BID PO 03/25/24 22:00 03/27/24 09:10 40 MG Methocarbamol 750 mg TIDPRN PRN PO 03/25/24 11:45 03/26/24 01:59 750 MG Tamsulosin HCl 0.8 mg QPM PO 03/25/24 18:00 03/26/24 17:03 0.8 MG Laboratory Results Laboratory Tests 03/24/24 12:08 03/26/24 04:47 Urinalysis Test 03/23/24 05:20 Urine Color Dark-brown (Yellow) Urine Clarity Ex.turbid (Clear) Urine pH 5.5 (5.0-9.0) Urine Specific [place] 1.009 (1.001-1.035) Urine Protein 2+ (Negative) H Urine Ketones Negative (Negative) Urine Blood 3+ /uL (Negative) H Urine Nitrite Negative (Negative) Urine Bilirubin Negative (Negative) Urine Urobilinogen Normal mg/dL (Negative) Urine Leukocyte Esterase 3+ /uL (Negative) Urine RBC 14 /hpf (0 - 3) Urine WBC 3477 /hpf (0 - 3) Urine WBC Clumps Present /hpf (None Seen) Urine Squamous Epithelial Cells None seen /hpf (<5) Urine Bacteria None seen /hpf (None Seen) Urine Mucus Few (None Seen) Urine Glucose 3+ mg/dL (Normal) H Microbiology Microbiology Date/Time Source Procedure Growth Status 03/24/24 12:08 Blood Blood Culture - Preliminary NO GROWTH AFTER 48 HOURS OF INCUBATION. Resulted 03/23/24 05:20 Voided Urine Urine Culture - Preliminary Escherichia coli Resulted Labs and/or images reviewed: Labs reviewed by me, Image(s) reviewed by me Assessment/Plan Assessment/Plan Sepsis secondary to acute urinary tract infection Acute UTI and pyelonephritis: Blood cultures negative, urine cultures coli, continue Rocephin , DC Zosyn Acute left flank pain History of L-spine surgery for bulging discs and mechanical fall had surgery on 12/28/2023 at [facility] with a stay from 12/20/2023 to 02-24-24, and subsequent [facility]it[facility]iary stay Born with solitary right kidney Hypotension Diabetes Hypercholesterolemia History of kidney stones Urinary incontinence Paraplegia History of cardiac stents Chronic bedridden Chronic malnutrition Because of insurance home health can not be arranged per bilingual social worker notes Will DC home on Friday on Cipro for UTI Plan discussed with: Patient My Orders Orders - MAR GARCIA MD Procedure Category Date Status Time Pt Request For Service PT 03/26/24 Logged 12:02 Date of Service: Mar 27, 2024 Billing Provider: MAR GARCIA MD Common Visit Codes: [id number] INP/OBS CARE(HIGH) MAR GARCIA MD Mar 27, 2024 11:50
[2024-03-28] VITALS (8 sets, daily range): BP systolic 137–169; BP diastolic 73–87; PULSE 58–70; RESP 16–20; TEMP 97.4–98.1; O2SAT 93–97
--- NOTE | 2024-03-28 12:23 | DVHPN2 ---
Reviewed: Care Plan, H&P, Labs, Medications, Previous Orders, Radiology Changes from previous H/P or p: No Changes Eyes: No Pain, No Vision change, No Conjunctivae inflammation, No Eyelid inflammation, No Other, No Redness ENT: No Ear pain, No Ear discharge, No Nose pain, No Nose discharge, No Nose congestion, No Mouth pain, No Mouth swelling, No Throat pain, No Throat swelling, No Other Cardiovascular: No Chest Pain, No Palpitations, No Orthopnea, No Paroxysmal Noc. Dyspnea, No Edema, No Lt Headedness, No Other Respiratory: No Cough, No Dry, No Shortness of breath, No SOB with excertion, No Wheezing, No Hemoptysis, No Pleuritic Pain, No Sputum, No Other Gastrointestinal: No Nausea, No Vomiting, No Abdominal Pain, No Diarrhea, No Constipation, No Melena, No Hematochezia, No Other Genitourinary: No Dysuria, No Frequency, No Incontinence; Hematuria; No Retention, No Other Musculoskeletal: No other, No neck pain, No shoulder pain, No arm pain, No back pain, No hand pain, No leg pain, No foot pain Skin: No Rash, No Lesions, No Jaundice, No Bruising, No Other Objective Vitals Vital Signs Date Time Temp Pulse Resp B/P (MAP) Pulse Ox O2 Delivery O2 Flow Rate FiO2 03/28/24 09:29 98.0 66 16 169/87 (114) 93 98.0 03/28/24 07:45 Room Air* 0 21 Intake/Output Intake and Output 03/28/24 07:00 Intake Total 980 ml Output Total 6401 ml Balance -5421 ml Intake Oral 980 ml Output Urine Total 6400 ml Stool Total 1 ml # Bowel Movements 4 Medications Current Medications Medications Dose Ordered Sig/Dottie Route Start Time Stop Time Status Last Admin Dose Admin Sodium Chloride 1,000 ml @ 100 mls/hr Q10H IV 03/23/24 13:15 03/28/24 03:15 100 MLS/HR Acetaminophen/ Hydrocodone Bitart 1 tab Q4HP PRN PO 03/23/24 13:15 03/27/24 21:14 1 TAB Ondansetron HCl 4 mg Q4HP PRN IV 03/23/24 13:15 Acetaminophen 650 mg Q6HP PRN PO 03/23/24 13:15 Morphine Sulfate 2 mg Q4HPRN PRN IV 03/23/24 13:15 03/23/24 21:27 2 MG Nitroglycerin 0.4 mg Q5MINP PRN SL 03/23/24 13:15 Morphine Sulfate 2 mg Q30M PRN IV 03/23/24 13:15 Diagnostic Test (Pha) 1 strip ACHS 03/23/24 17:00 03/28/24 11:27 1 STRIP Insulin Human Regular ACHS SC 03/23/24 17:00 03/28/24 11:37 8 UNITS Dextrose 50 ml UD PRN IV 03/23/24 13:15 Ceftriaxone Sodium 50 ml @ 100 mls/hr DAILY@09 IV 03/24/24 09:00 03/28/24 09:09 100 MLS/HR Piperacillin Sod/ Tazobactam Sod 100 ml @ 25 mls/hr Q8HR IV 03/23/24 22:00 Hold 03/24/24 14:32 25 MLS/HR Amlodipine Besylate 5 mg DAILY PO 03/26/24 10:00 03/28/24 09:10 5 MG Carvedilol 3.125 mg Q12HR PO 03/25/24 22:00 03/28/24 09:10 3.125 MG Gabapentin 300 mg DAILY PO 03/26/24 10:00 03/28/24 09:10 300 MG Lisinopril 40 mg BID PO 03/25/24 22:00 03/28/24 09:11 40 MG Methocarbamol 750 mg TIDPRN PRN PO 03/25/24 11:45 03/27/24 22:40 750 MG Tamsulosin HCl 0.8 mg QPM PO 03/25/24 18:00 03/27/24 17:04 0.8 MG Laboratory Results Laboratory Tests 03/24/24 12:08 03/26/24 04:47 Urinalysis Test 03/23/24 05:20 Urine Color Dark-brown (Yellow) Urine Clarity Ex.turbid (Clear) Urine pH 5.5 (5.0-9.0) Urine Specific [place] 1.009 (1.001-1.035) Urine Protein 2+ (Negative) H Urine Ketones Negative (Negative) Urine Blood 3+ /uL (Negative) H Urine Nitrite Negative (Negative) Urine Bilirubin Negative (Negative) Urine Urobilinogen Normal mg/dL (Negative) Urine Leukocyte Esterase 3+ /uL (Negative) Urine RBC 14 /hpf (0 - 3) Urine WBC 3477 /hpf (0 - 3) Urine WBC Clumps Present /hpf (None Seen) Urine Squamous Epithelial Cells None seen /hpf (<5) Urine Bacteria None seen /hpf (None Seen) Urine Mucus Few (None Seen) Urine Glucose 3+ mg/dL (Normal) H Microbiology Microbiology Date/Time Source Procedure Growth Status 03/24/24 12:08 Blood Blood Culture - Preliminary NO GROWTH AFTER 72 HOURS OF INCUBATION. Resulted 03/23/24 05:20 Voided Urine Urine Culture - Final Escherichia coli Yeast, not Renata albicans Complete Labs and/or images reviewed: Labs reviewed by me, Image(s) reviewed by me Assessment/Plan Assessment/Plan Sepsis secondary to acute urinary tract infection Acute UTI and pyelonephritis: Blood cultures negative, urine cultures Ecoli, continue Rocephin Urine cultures growing yeast not Renata: Micafungin 100 mg IV daily Acute left flank pain History of L-spine surgery for bulging discs and mechanical fall had surgery on 12/28/2023 at [facility] with a stay from 12/20/2023 to 02-24-24, and subsequent [facility] stay Born with solitary right kidney Hypotension Diabetes Hypercholesterolemia History of kidney stones Urinary incontinence Paraplegia History of cardiac stents Chronic bedridden Chronic malnutrition Because of insurance home health can not be arranged per social work associate notes Will DC home on Friday on Cipro for UTI Plan discussed with: Patient My Orders Orders - MAR GARCIA MD Procedure Category Date Status Time Micafungin Sodium PHA 03/29/24 Transmitted (Mycamine) 10:00 Micafungin Sodium PHA 03/28/24 Verified (Mycamine) 12:30 Date of Service: Mar 28, 2024 Billing Provider: MAR GARCIA MD Common Visit Codes: [id number] INP/OBS CARE(HIGH) MAR GARCIA MD Mar 28, 2024 12:22
[2024-03-28] MEDS: MICAFUNGIN SODIUM 100 MG in SODIUM CHL 0.9% 100 ML IV ONE (16:13)
[2024-03-29 01:00] VITALS: BP 158/81; PULSE 64; RESP 19; TEMP 98; O2SAT 93
[2024-03-29 05:00] VITALS: BP 125/63; PULSE 70; RESP 19; TEMP 97.8; O2SAT 92
[2024-03-29 08:00] VITALS: PULSE 91
[2024-03-29 09:00] VITALS: BP 151/85; PULSE 63; RESP 18; TEMP 97.7; O2SAT 94
[2024-03-29] MEDS: MICAFUNGIN SODIUM 100 MG in SODIUM CHL 0.9% 100 ML IV SCH (11:05)
[2024-03-29 11:09] LABS: Basophils # (auto) 0.1 10 ^3/uL (0-0.2); Basophils % (auto) 0.7 % (0.0-2.0); Eosinophils # (auto) 0.5 10 ^3/uL (0-0.8); Eosinophils % (auto) 5.4 % (0.0-7.0); Hemoglobin 15.7 g/dL (13.5-17.5); Lymphocytes # (auto) 1.3 10 ^3/uL (0.4-5.4); Lymphocytes % (auto) 13.8 % (10.0-50.0); Mean Corpuscular Hemoglobin 28.3 pg (28.0-32.0); Mean Corpuscular Hgb Conc. 33.4 g/dL (32.0-36.0); Mean Corpuscular Volume 84.7 fL (80.0-100.0); Monocytes # (auto) 0.6 10 ^3/uL (0-1.3); Neutrophils # (auto) 6.8 10 ^3/uL (1.6-8.6); Neutrophils % (auto) 73.1 % (37.0-80.0); Nucleated Red Blood Cells % 0.3 %; Platelet Count (auto) 240 10^3/uL (140-450); Red Blood Cells 5.56 10^6/uL (4.5-5.90); Red Cell Distribution Width 15.2 % (11.8-14.3); White Blood Cell 9.2 10^3/uL (4.4-10.8)
[2024-03-29 11:35] LABS: Alanine Aminotransferase 10 U/L (7-40); Anion Gap 8 (5-15); BUN/Creatinine Ratio 8.3 (10.0-20.0); Carbon Dioxide 24 mmol/L (20-31); Chloride 106 mmol/L (98-107); Potassium 4.5 mmol/L (3.5-5.1); Sodium 138 mmol/L (136-145)
[2024-03-29 11:36] LABS: Albumin 4.3 g/dL (3.2-4.8); Aspartate Aminotransferase 19 U/L (13-40)
[2024-03-29 11:37] LABS: Bilirubin, Total 0.5 mg/dL (0.2-1.0); Total Protein 7.1 g/dL (5.7-8.2)
[2024-03-29 11:45] LABS: Alkaline Phosphatase 134 U/L (46-116); Blood Urea Nitrogen 8 mg/dL (9-23); Glucose 276 mg/dL (74-106)
[2024-03-29 13:00] VITALS: BP 160/91; PULSE 61; RESP 18; TEMP 98.3; O2SAT 99
--- NOTE | 2024-03-29 13:22 | DVHPN2 ---
Reviewed: Care Plan, H&P, Labs, Medications, Previous Orders, Radiology Changes from previous H/P or p: No Changes Eyes: No Pain, No Vision change, No Conjunctivae inflammation, No Eyelid inflammation, No Other, No Redness ENT: No Ear pain, No Ear discharge, No Nose pain, No Nose discharge, No Nose congestion, No Mouth pain, No Mouth swelling, No Throat pain, No Throat swelling, No Other Cardiovascular: No Chest Pain, No Palpitations, No Orthopnea, No Paroxysmal Noc. Dyspnea, No Edema, No Lt Headedness, No Other Respiratory: No Cough, No Dry, No Shortness of breath, No SOB with excertion, No Wheezing, No Hemoptysis, No Pleuritic Pain, No Sputum, No Other Gastrointestinal: No Nausea, No Vomiting, No Abdominal Pain, No Diarrhea, No Constipation, No Melena, No Hematochezia, No Other Genitourinary: No Dysuria, No Frequency, No Incontinence; Hematuria; No Retention, No Other Musculoskeletal: No other, No neck pain, No shoulder pain, No arm pain, No back pain, No hand pain, No leg pain, No foot pain Skin: No Rash, No Lesions, No Jaundice, No Bruising, No Other Objective Vitals Vital Signs Date Time Temp Pulse Resp B/P (MAP) Pulse Ox O2 Delivery O2 Flow Rate FiO2 03/29/24 13:06 56 162/81 03/29/24 09:00 97.7 18 94 97.7 03/29/24 08:00 Room Air* 0 21 Intake/Output Intake and Output 03/29/24 07:00 Intake Total 580 ml Output Total 2350 ml Balance -1770 ml Intake Oral 580 ml Output Urine Total 2350 ml Medications Current Medications Medications Dose Ordered Sig/Dottie Route Start Time Stop Time Status Last Admin Dose Admin Acetaminophen/ Hydrocodone Bitart 1 tab Q4HP PRN PO 03/23/24 13:15 03/28/24 22:10 1 TAB Ondansetron HCl 4 mg Q4HP PRN IV 03/23/24 13:15 Acetaminophen 650 mg Q6HP PRN PO 03/23/24 13:15 Morphine Sulfate 2 mg Q4HPRN PRN IV 03/23/24 13:15 03/23/24 21:27 2 MG Nitroglycerin 0.4 mg Q5MINP PRN SL 03/23/24 13:15 Morphine Sulfate 2 mg Q30M PRN IV 03/23/24 13:15 Diagnostic Test (Pha) 1 strip ACHS 03/23/24 17:00 03/29/24 11:30 1 STRIP Insulin Human Regular ACHS SC 03/23/24 17:00 03/29/24 13:00 6 UNITS Dextrose 50 ml UD PRN IV 03/23/24 13:15 Ceftriaxone Sodium 50 ml @ 100 mls/hr DAILY@09 IV 03/24/24 09:00 03/29/24 09:01 100 MLS/HR Piperacillin Sod/ Tazobactam Sod 100 ml @ 25 mls/hr Q8HR IV 03/23/24 22:00 Hold 03/24/24 14:32 25 MLS/HR Amlodipine Besylate 5 mg DAILY PO 03/26/24 10:00 03/29/24 09:22 5 MG Carvedilol 3.125 mg Q12HR PO 03/25/24 22:00 03/29/24 12:55 3.125 MG Gabapentin 300 mg DAILY PO 03/26/24 10:00 03/29/24 09:21 300 MG Lisinopril 40 mg BID PO 03/25/24 22:00 03/29/24 11:20 40 MG Methocarbamol 750 mg TIDPRN PRN PO 03/25/24 11:45 03/27/24 22:40 750 MG Tamsulosin HCl 0.8 mg QPM PO 03/25/24 18:00 03/28/24 17:04 0.8 MG Micafungin Sodium 100 mg/Sodium Chloride 100 ml @ 100 mls/hr DAILY IV 03/29/24 10:00 03/29/24 11:05 100 MLS/HR Laboratory Results Laboratory Tests 03/29/24 10:25 Chemistry Test 03/29/24 10:25 Albumin 4.3 g/dL (3.2-4.8) Calcium Level 11.0 mg/dL (8.7-10.4) H Total Protein 7.1 g/dL (5.7-8.2) LFT Test 03/29/24 10:25 Alanine Aminotransferase (ALT) 10 U/L (7-40) Alkaline Phosphatase 134 U/L (46-116) H Aspartate Amino Transferase (AST) 19 U/L (13-40) Total Bilirubin 0.5 mg/dL (0.2-1.0) Urinalysis Test 03/23/24 05:20 Urine Color Dark-brown (Yellow) Urine Clarity Ex.turbid (Clear) Urine pH 5.5 (5.0-9.0) Urine Specific [place] 1.009 (1.001-1.035) Urine Protein 2+ (Negative) H Urine Ketones Negative (Negative) Urine Blood 3+ /uL (Negative) H Urine Nitrite Negative (Negative) Urine Bilirubin Negative (Negative) Urine Urobilinogen Normal mg/dL (Negative) Urine Leukocyte Esterase 3+ /uL (Negative) Urine RBC 14 /hpf (0 - 3) Urine WBC 3477 /hpf (0 - 3) Urine WBC Clumps Present /hpf (None Seen) Urine Squamous Epithelial Cells None seen /hpf (<5) Urine Bacteria None seen /hpf (None Seen) Urine Mucus Few (None Seen) Urine Glucose 3+ mg/dL (Normal) H Microbiology Microbiology Date/Time Source Procedure Growth Status 03/24/24 12:08 Blood Blood Culture - Final NO GROWTH AFTER 5 DAYS OF INCUBATION. Complete 03/23/24 05:20 Voided Urine Urine Culture - Final Escherichia coli Yeast, not Renata albicans Complete Labs and/or images reviewed: Labs reviewed by me, Image(s) reviewed by me Assessment/Plan Assessment/Plan Sepsis secondary to acute urinary tract infection Acute UTI and pyelonephritis: Blood cultures negative, urine cultures Ecoli, continue Rocephin Urine cultures growing yeast not Renata: Micafungin 100 mg IV daily Acute left flank pain History of L-spine surgery for bulging discs and mechanical fall had surgery on 12/28/2023 at [facility] with a stay from 12/20/2023 to 02-24-24, and subsequent [facility] stay Born with solitary right kidney Hypotension Diabetes Hypercholesterolemia History of kidney stones Urinary incontinence Paraplegia History of cardiac stents Chronic bedridden Chronic malnutrition Because of insurance home health can not be arranged per social media project manager notes Will DC home on Friday on Cipro for UTI Plan discussed with: Patient Date of Service: Mar 29, 2024 Billing Provider: MAR GARCIA MD Common Visit Codes: [id number] INP/OBS CARE(HIGH) MAR GARCIA MD Mar 29, 2024 13:21
[2024-03-29] MEDS ORDERED: FLUC200T PO (13:26)
[2024-03-29] MEDS ORDERED: CIPR-173 PO (13:26)
[2024-03-29] MEDS ORDERED: HYDR-4902 PO (13:26)
--- NOTE | 2024-03-29 13:31 | DVHDS2 ---
Discharge Summary Date of Admission Mar 23, 2024 at 13:05 Date of Discharge: Mar 29, 2024 Admitting Diagnosis Generalized weakness Wounds: None Labs/Diagnostic Data: Laboratory Results Test 03/29/24 10:25 03/29/24 05:51 03/23/24 17:33 03/23/24 05:20 White Blood Count 9.2 10^3/uL (4.4-10.8) Red Blood Count 5.56 10^6/uL (4.5-5.90) Hemoglobin 15.7 g/dL (13.5-17.5) Hematocrit 47.0 % (41.0-53.0) Mean Corpuscular Volume 84.7 fL (80.0-100.0) Mean Corpuscular Hemoglobin 28.3 pg (28.0-32.0) Mean Corpuscular Hemoglobin Concent 33.4 g/dL (32.0-36.0) Red Cell Distribution Width 15.2 % (11.8-14.3) Platelet Count 240 10^3/uL (140-450) Mean Platelet Volume 8.8 fL (6.9-10.8) Neutrophils (%) (Auto) 73.1 % (37.0-80.0) Lymphocytes (%) (Auto) 13.8 % (10.0-50.0) Monocytes (%) (Auto) 7.0 % (0.0-12.0) Eosinophils (%) (Auto) 5.4 % (0.0-7.0) Basophils (%) (Auto) 0.7 % (0.0-2.0) Neutrophils # (Auto) 6.8 10 ^3/uL (1.6-8.6) Lymphocytes # (Auto) 1.3 10 ^3/uL (0.4-5.4) Monocytes # (Auto) 0.6 10 ^3/uL (0-1.3) Eosinophils # (Auto) 0.5 10 ^3/uL (0-0.8) Basophils # (Auto) 0.1 10 ^3/uL (0-0.2) Nucleated Red Blood Cells 0.3 % Sodium Level 138 mmol/L (136-145) Potassium Level 4.5 mmol/L (3.5-5.1) Chloride Level 106 mmol/L (98-107) Carbon Dioxide Level 24 mmol/L (20-31) Anion Gap 8 (5-15) Blood Urea Nitrogen 8 mg/dL (9-23) Creatinine 0.96 mg/dL (0.700-1.30) Glomerular Filtration Rate Calc 95 mL/min (>90) BUN/Creatinine Ratio 8.3 (10.0-20.0) Serum Glucose 276 mg/dL (74-106) Calcium Level 11.0 mg/dL (8.7-10.4) Total Bilirubin 0.5 mg/dL (0.2-1.0) Aspartate Amino Transferase (AST) 19 U/L (13-40) Alanine Aminotransferase (ALT) 10 U/L (7-40) Alkaline Phosphatase 134 U/L (46-116) Total Protein 7.1 g/dL (5.7-8.2) Albumin 4.3 g/dL (3.2-4.8) POC Glucose 220 mg/dl (70-106) Troponin I High Sensitivity 7 ng/L (</=54) Urine Color Dark-brown (Yellow) Urine Clarity Ex.turbid (Clear) Urine pH 5.5 (5.0-9.0) Urine Specific [place] 1.009 (1.001-1.035) Urine Protein 2+ (Negative) Urine Ketones Negative (Negative) Urine Blood 3+ /uL (Negative) Urine Nitrite Negative (Negative) Urine Bilirubin Negative (Negative) Urine Urobilinogen Normal mg/dL (Negative) Urine Leukocyte Esterase 3+ /uL (Negative) Urine RBC 14 /hpf (0 - 3) Urine WBC 3477 /hpf (0 - 3) Urine WBC Clumps Present /hpf (None Seen) Urine Squamous Epithelial Cells None seen /hpf (<5) Urine Bacteria None seen /hpf (None Seen) Urine Mucus Few (None Seen) Urine Glucose 3+ mg/dL (Normal) Test 03/23/24 05:18 Hemoglobin A1c 8.3 % A1C (<5.7) Other Laboratory Tests 03/29/24 10:25 Brief Hx & Hospital Course: 53-year-old male with a history of L-spine surgery for bulging discs and mechanical fall on 12/28/2023 at [facility] about 10 day stay postop any local penitentiary then came home came to [facility] admitted for sepsis secondary to urinary tract infection found to have acute pyelonephritis blood cultures negative urine cultures grew E coli treated with Rocephin. Urine cultures also grew yeast placed on micafungin 100 mg IV daily patient has diabetes urinary incontinence kidney stones paraplegia and history of cardiac stents and bedridden. Home health could not be arranged because of his insurance issue being discharged home on Cipro and Diflucan for UTI and [place] for the pain. He will follow up with his primary Dr general condition stable but poor at the time of discharge Consults/Reason for consult Urology Operations or Procedures CT abdomen pelvis without contrast Condition at Discharge: Fair Final Diagnosis/Problems List Sepsis secondary to acute urinary tract infection Acute UTI and pyelonephritis: Blood cultures negative, urine cultures Ecoli, continue Rocephin Urine cultures growing yeast not Renata: Micafungin 100 mg IV daily Acute left flank pain History of L-spine surgery for bulging discs and mechanical fall had surgery on 12/28/2023 at [facility] with a stay from 12/20/2023 to 02-24-24, and subsequent penitentiary stay Born with solitary right kidney Hypotension Diabetes Hypercholesterolemia History of kidney stones Urinary incontinence Paraplegia History of cardiac stents Chronic bedridden Chronic malnutrition Discharge Disposition: Home Discharge Instruct/Medications Diet: Regular Activity: Light activity Follow Up/Referral: Follow up with your primary Dr in one week Resume all previous home medication Medications: Cipro Diflucan [place] Transmitted to [facility] 35 (Time Taken for discharge summary 35 minutes) Discharge Statement: "Patient was advised to return to the ER or call 911 if any headaches, dizziness, shortness of breath, chest pain, abdominal pain, bleeding, fevers, or worsening of medical condition. Patient was counseled about treatment plan, medications, possible side effects, patientverbalized understanding. All questions were answered to the best of my ability. This discharge took greater then 30 minutes in planning, reviewing documentation, counseling the patient, and discussing with other team members." ASSESSMENT ASSESSMENT Hospital Course Improved marginally Assessment Sepsis secondary to acute urinary tract infection Acute UTI and pyelonephritis: Blood cultures negative, urine cultures Ecoli, continue Rocephin Urine cultures growing yeast not Renata: Micafungin 100 mg IV daily Acute left flank pain History of L-spine surgery for bulging discs and mechanical fall had surgery on 12/28/2023 at [facility] with a stay from 12/20/2023 to 02-24-24, and subsequent penitentiary stay Born with solitary right kidney Hypotension Diabetes Hypercholesterolemia History of kidney stones Urinary incontinence Paraplegia History of cardiac stents Chronic bedridden Chronic malnutrition Date of Service: Mar 29, 2024 Billing Provider: MAR GARCIA MD Common Visit Codes: [id number]/OBS DISCH DAY >30min MAR GARCIA MD Mar 29, 2024 13:31
[2024-03-29 15:16] VITALS: BP 142/71; PULSE 56
== END 2024-03-29 17:40 | disposition home health service (06) | DRG 872 ==
LOC: EDBD 04:16 → ER 04:16 → TELE 13:05 → TELE-WESTW 03-24 03:29
PROVIDERS: ADMIT Family Medicine; ATTEND Family Medicine
DX: A41.51 Sepsis due to Escherichia coli [E. coli] (principal); E46 Unspecified protein-calorie malnutrition; G82.20 Paraplegia, unspecified; N17.9 Acute kidney failure, unspecified; N10 Acute pyelonephritis; E78.00 Pure hypercholesterolemia, unspecified; R32 Unspecified urinary incontinence; R80.9 Proteinuria, unspecified; R81 Glycosuria; E66.9 Obesity, unspecified; N18.9 Chronic kidney disease, unspecified; I12.9 Hypertensive chronic kidney disease with stage 1 through stage 4 chronic kidney disease, or unspecified chronic kidney disease; E11.22 Type 2 diabetes mellitus with diabetic chronic kidney disease; Z68.20 Body mass index [BMI] 20.0-20.9, adult; Z74.01 Bed confinement status; Z87.442 Personal history of urinary calculi; Z90.5 Acquired absence of kidney; Z83.3 Family history of diabetes mellitus; Z82.1 Family history of blindness and visual loss; Z91.81 History of falling; Z95.5 Presence of coronary angioplasty implant and graft
CPT/HCPCS: 36415; 71045; 74176; 76775; 80048; 80053; 81001; 82962; 83036; 84484; 85025; 87040; 87086; 87088; 87186; 96365; 96375; 97110; 97163; G0378; J1815; J2248; J2543

== ENCOUNTER 2024-06-03 19:19 | Inpatient (IN) | payer BC, MEDICAID ==
[~2024-06-03] VITALS: Ht 180.3 cm; Wt 119.5 kg
[~2024-06-03 19:19] MED LIST: AMLO1TAB22 PO; CARV3.1240 PO; CIPR-173 PO; CLON0.1T PO; FLUC200T PO; FURO40TA4 PO; GABA-1250 PO; HYDR-4902 PO; ISOS1TAB28 PO; LISI40TA16 PO; METH-1182 PO; PANT40T PO; ROSU5TAB24 PO; TAMS0.4C39 PO
--- NOTE | 2024-06-03 19:48 | ED.PDOC ---
General HPI Comments past medical history: DM, hypertension, kidney stones, hyperlipidemia, paraplegia past surgical history: spine surgery medications: lisinopril, metoprolol, metformin allergies: nkda social history: denies tobacco use, denies Etoh use, denies drug use Adrianne: HPI: Poor Historian. 53-year-old male brought in by ambulance for evaluation of low back pain. Patient is bed-bound. Patient lives with his father and daughter. Patient is brought in by ambulance for suspected UTI. Patient was prescribed Augmentin which he is still taking. This was prescribed to him by his PCP at least more than a week ago. Patient is back lower back pain did not resolve and persists since this last Friday few days ago. He was advised to go to the ER for further evaluation. REVIEW OF SYSTEMS: CONSTITUTIONAL: Denies acute: fever, diaphoresis, chills, HEAD: Denies acute: headache, photophobia Eyes: Denies acute: Double vision, vision loss, eye pain, eye discharge. EARS: Denies acute: tinnitus, hearing loss, ear discharge, ear pain, THROAT: Denies acute: sore throat, swelling, difficulty swallowing , pain with swallowing, change in voice. NECK: Denies acute: neck pain, neck swelling, stiff neck. HEART: Denies acute : chest pain, palpitations, LUNGS: Denies acute: SOB, wheezing, cough, hemoptysis ABDOMEN: Denies acute: abdominal pain, Nausea, Vomiting, diarrhea, melena , hematemesis, hematochezia SKIN: Denies acute: rash, redness, lesions, itchiness. EXTREMITIES: Denies acute: calf pain, numbness, tingling, weakness, denies pain in extremity. Neuro: Denies acute: focal neurological deficit, motor or sensory focal neurological deficit, tremors, seizure like activity, confusion, dizziness, change in mental status, loss of bowel or bladder function, cauda equina like symptoms. : Denies acute: dysuria, hematuria, flank pain, increase in urinary frequency. PSYCH: Denies acute: hallucination, suicidal ideation, homicidal ideation. PHYSICAL EXAM: General: no acute distress, awake and alert. Head: normocephalic, atraumatic. Neck: supple, trachea is midline, no swelling. Throat: Normal phonation. Eyes:, no erythema, no purulent discharge, no proptosis, no icterus. Heart: regular rate, regular rhythm, no significant murmur appreciated. Lungs: no apparent respiratory distress, Able to speak in full sentences. No wheezing, no rhonchi, no crackles. No stridors Clear to auscultation bilaterally. Abdomen: non tender to palpation, non distended, soft, no guarding, no rebound, + bowel sounds. Neuro: Awake, Alert, oriented to name, self, situation, follows commands GCS=15. Speech is normal. Skin: no petechia, no purpura, no cyanosis, non-pale, not jaundice. Lower extremities: --no - Pitting edema no deformity, no focal swelling, no calf TTP. Makes eye contact. Patient is paralyzed from the waist down. Face: no apparent facial droop. ED COURSE: Chief Complaint: Urinary Time Seen by MD: 19:45 Reviewed notes: Nurses Notes, Allergies Allergies: Coded Allergies: NO KNOWN ALLERGIES (Unverified , 12/20/23) Home Meds Active Scripts Hydrocodone-Acetaminophen (Hydrocodone Bitartrate/AC 5-325 mg) 1 Tab Tab, 1 TAB PO QID PRN, #30 TAB Prov:MAR GARCIA MD 03/29/24 Ciprofloxacin Hcl (Cipro) 500 Mg Tab, 1 TAB PO BID, #20 TAB Prov:MAR GARCIA MD 03/29/24 Fluconazole (Diflucan) 200 Mg Tab, 1 TAB PO DAILY, #7 TAB Prov:MAR GARCIA MD 03/29/24 Reported Medications Gabapentin (Gabapentin) 300 Mg Cap, PO 03/23/24 Tamsulosin Hcl (Tamsulosin Hcl) 0.4 Mg Cap, 2 CAP PO DAILY 03/23/24 Pantoprazole Sodium Sesquihydr (Pantoprazole Sodium) 40 Mg Tab, 1 TAB PO DAILY 03/23/24 Rosuvastatin Calcium (Rosuvastatin Calcium) 5 Mg Tab, TAB PO 03/23/24 Amlodipine Besylate (Amlodipine Besylate) 5 Mg Tab, 1 TAB PO DAILY 03/23/24 Carvedilol (Carvedilol) 3.125 Mg Tab, 1 TAB PO BID 03/23/24 Isosorbide Mononitrate (Isosorbide Mononitrate Er) 30 Mg Tab, 1 TAB PO DAILY 03/23/24 Methocarbamol (Methocarbamol) 750 Mg Tab, 1 TAB PO TID PRN 03/23/24 Clonidine Hydrochloride (Clonidine Hcl) 0.1 Mg Tab, 1 TAB PO DAILY 03/23/24 Lisinopril (Lisinopril) 40 Mg Tab, 1 TAB PO BID 03/23/24 Furosemide (Furosemide) 40 Mg Tab, 1 TAB PO DAILY 03/23/24 Information Source: Patient Mode of Arrival: Ambulatory Brought in by: self Past Medical History PAST MEDICAL HISTORY: DM, HTN, Kidney Stones Family History Family History: Reviewed,noncontributory to illness Social History Smoker: Non-Smoker Alcohol: Denies ETOH Use Drugs: Denies Drug Use Lives In: Home Was a procedure done? Was a procedure done?: No Differential Diagnosis Kidney stone (Female): N/A Urinary Problem (Male): Bladder Outlet, Bladder Obstruction, Epididymitis, Prostatitis, Plelonephritis, Post op Complications, Renal Failure, Urethritis, Urinary Retention, Urolithiasis, UTI, Other (DDX included but not limited to Cauda Equina syndrome, lumbar radiculopathy, arthritis, disk herniation, sciatica, muscle strain, epidural abscess, transverse myelitis. Cord compression, spinal foraminal stenosis, spinal fractures, spondylosis, central canal stenosis, trauma, muscle sprain/strain, aneurysm/dissection, kidney stones, shingles, arthritis, Guillan [place], neoplasm.) X-Ray, Labs, Meds, VS Vital Signs Date Time Temp Pulse Resp B/P (MAP) Pulse Ox O2 Delivery O2 Flow Rate FiO2 06/03/24 21:48 96 16 94 Room Air* 0 21 06/03/24 21:39 99.0 91 14 114/68 (83) 95 99.0 06/03/24 19:19 99.0 100 20 158/90 (112) 94 99.0 Lab Test 06/03/24 21:50 06/03/24 19:42 Range/Units POC Glucose 395 H 70-106 mg/dl White Blood Count 8.3 4.4-10.8 10^3/uL Red Blood Count 5.66 4.5-5.90 10^6/uL Hemoglobin 14.8 13.5-17.5 g/dL Hematocrit 46.3 41.0-53.0 % Mean Corpuscular Volume 81.8 80.0-100.0 fL Mean Corpuscular Hemoglobin 26.1 L 28.0-32.0 pg Mean Corpuscular Hemoglobin Concent 31.9 L 32.0-36.0 g/dL Red Cell Distribution Width 16.5 H 11.8-14.3 % Platelet Count 319 140-450 10^3/uL Mean Platelet Volume 8.2 6.9-10.8 fL Neutrophils (%) (Auto) 77.8 37.0-80.0 % Lymphocytes (%) (Auto) 8.6 L 10.0-50.0 % Monocytes (%) (Auto) 10.1 0.0-12.0 % Eosinophils (%) (Auto) 3.0 0.0-7.0 % Basophils (%) (Auto) 0.5 0.0-2.0 % Neutrophils # (Auto) 6.5 1.6-8.6 10 ^3/uL Lymphocytes # (Auto) 0.7 0.4-5.4 10 ^3/uL Monocytes # (Auto) 0.8 0-1.3 10 ^3/uL Eosinophils # (Auto) 0.3 0-0.8 10 ^3/uL Basophils # (Auto) 0 0-0.2 10 ^3/uL Nucleated Red Blood Cells 0.0 % Sodium Level 131 L 136-145 mmol/L Potassium Level 5.4 H 3.5-5.1 mmol/L Chloride Level 98 98-107 mmol/L Carbon Dioxide Level 21 20-31 mmol/L Anion Gap 12 5-15 Blood Urea Nitrogen 40 H 9-23 mg/dL Creatinine 1.53 H 0.700-1.30 mg/dL Glomerular Filtration Rate Calc 54 >90 mL/min BUN/Creatinine Ratio 26.1 H 10.0-20.0 Serum Glucose 451 *H 74-106 mg/dL Lactic Acid Level 1.6 0.4-2.0 mmol/L Calcium Level 11.5 H 8.7-10.4 mg/dL Total Bilirubin 0.4 0.2-1.0 mg/dL Aspartate Amino Transferase (AST) 31 13-40 U/L Alanine Aminotransferase (ALT) 50 H 7-40 U/L Alkaline Phosphatase 162 H 46-116 U/L C-Reactive Protein High Sensitivity 15.62 H <1.0 mg/dL Total Protein 7.9 5.7-8.2 g/dL Albumin 4.2 3.2-4.8 g/dL Current Medications Medications (Trade) Dose Ordered Sig/Dottie Route Start Time Stop Time Status Last Admin Sodium Chloride 1,000 ml @ 1,000 mls/hr Q1H ONCE IV 06/03/24 19:45 06/03/24 20:44 DC 06/03/24 21:35 Ceftriaxone Sodium 50 ml @ 100 mls/hr ONCE ONCE IV 06/03/24 19:45 06/03/24 20:14 DC 06/03/24 21:35 Insulin Human Regular (InsuLIN R) 5 units ONCE ONCE IV 06/03/24 22:00 06/03/24 22:05 DC 06/03/24 22:11 Time of 1ST Reevaluation: 23:26 Reevaluation 1ST: Unchanged Patient Education/Counseling: Diagnosis, Treatment Family Education/Counseling: No Family Present Comments Patient presented with the above HPI.--urinary symptoms----workup was initiated. patient was found with the above mentioned diagnosis. the following medications were ordered: please refer to order lists of meds and tests obtained by myself Dr. Hung. Patient ED course and VS have been stabilized. Patient has been reassessed in the ED and remained in a stable condition. Pertinent incidental findings were discussed with the patient and/or family. Patient/family voices understanding and is agreeable with plan. Patient has been observed in the ED adequate length of time to insure improvement/stability. Escalation of care considered: Consideration of escalation to observation or admission Patient was ADMITTED to the medicine team for further evaluation and treatment of their presentation. Patient failed outpatient antibiotics. Patient was given fluids and antibiotics. Patient has elevated CRP. [place] catheter was ordered. There has been a delay of the patient providing us with a urine sample. All the reports of any imaging studies that were ordered by myself were reviewed by myself. Departure 1 Departure Time of Disposition: 21:00 Impression: Primary Impression: UTI (urinary tract infection) Additional Impressions: Uncontrolled diabetes mellitus Hyperglycemia Disposition: ADMITTED INPATIENT Admit to: Tele Condition: Guarded Discharged With: Self Critical Care Note Critical Care Time?: No I personally scribed for CORBIN HUNG DO ([facility] on 06/03/24 at 19:48. Electronically submitted by Virginia Flores ([facility] I personally scribed for CORBIN HUNG DO ([facility]) on 06/03/24 at 20:03. Electronically submitted by Virginia Flores ([facility]). CORBIN HUNG DO Jun 03, 2024 19:48
[2024-06-03 19:59] LABS: Hemoglobin 14.8 g/dL (13.5-17.5); White Blood Cell 8.3 10^3/uL (4.4-10.8)
[2024-06-03 20:01] LABS: Basophils # (auto) 0 10 ^3/uL (0-0.2); Basophils % (auto) 0.5 % (0.0-2.0); Eosinophils # (auto) 0.3 10 ^3/uL (0-0.8); Hematocrit 46.3 % (41.0-53.0); Lymphocytes # (auto) 0.7 10 ^3/uL (0.4-5.4); Lymphocytes % (auto) 8.6 % (10.0-50.0); Mean Corpuscular Hemoglobin 26.1 pg (28.0-32.0); Mean Corpuscular Hgb Conc. 31.9 g/dL (32.0-36.0); Mean Corpuscular Volume 81.8 fL (80.0-100.0); Monocytes # (auto) 0.8 10 ^3/uL (0-1.3); Monocytes % (auto) 10.1 % (0.0-12.0); Neutrophils # (auto) 6.5 10 ^3/uL (1.6-8.6); Neutrophils % (auto) 77.8 % (37.0-80.0); Platelet Count (auto) 319 10^3/uL (140-450); Red Blood Cells 5.66 10^6/uL (4.5-5.90); Red Cell Distribution Width 16.5 % (11.8-14.3)
[2024-06-03 20:21] LABS: Albumin 4.2 g/dL (3.2-4.8); Anion Gap 12 (5-15); Aspartate Aminotransferase 31 U/L (13-40); BUN/Creatinine Ratio 26.1 (10.0-20.0); Carbon Dioxide 21 mmol/L (20-31); Chloride 98 mmol/L (98-107); Total Protein 7.9 g/dL (5.7-8.2)
[2024-06-03 20:22] LABS: Bilirubin, Total 0.4 mg/dL (0.2-1.0)
[2024-06-03 20:31] LABS: Potassium 5.4 mmol/L (3.5-5.1); Sodium 131 mmol/L (136-145)
[2024-06-03 20:32] LABS: Alanine Aminotransferase 50 U/L (7-40); Alkaline Phosphatase 162 U/L (46-116); Blood Urea Nitrogen 40 mg/dL (9-23); CRP High Sensitivity 15.62 mg/dL (<1.0); Calcium 11.5 mg/dL (8.7-10.4)
[2024-06-03 20:35] LABS: Glucose 451 mg/dL (74-106)
[2024-06-03] MEDS: SODIUM CHLORIDE 0.9% 1,000 ML IV ONE (21:35)
[2024-06-03] MEDS: cefTRIAXone 1GM/50ML D5W 50 ML IV ONE (21:35)
[2024-06-03 21:48] VITALS: PULSE 96; RESP 16; O2SAT 94
[2024-06-03] MEDS: InsuLIN REG 1unit/0.01ml Soln (100units/ml) IV ONE (22:11)
[2024-06-03] MEDS ORDERED: ACETAMINOPHEN 325 MG TAB PO PRN (22:45)
[2024-06-03] MEDS ORDERED: DEXTROSE (50%) 50ML SYRG IV PRN (22:45)
[2024-06-03] MEDS ORDERED: DOCUSATE SOD 100 MG CAP PO PRN (22:45)
[2024-06-03] MEDS ORDERED: ONDANSETRON HCL 4 MG/2 ML VIAL IV PRN (22:45)
[2024-06-03] MEDS ORDERED: MORPHINE SULFATE INJ 2 MG/ml SYRG IV PRN (23:15)
[2024-06-03] MEDS ORDERED: NITROGLYCERIN 0.4 MG SL TAB SL PRN (23:15)
--- NOTE | 2024-06-03 23:18 | DVHHP2 ---
History of Present Illness Reason for Visit: Diabetes mellitus with hyperglycemia History of Present Illness The patient is a 53-year-old male paraplegic with past medical history of kidney stones, hyperlipidemia, hypertension, and diabetes mellitus who presented to [facility] ED with complaint of lower back pain. Patient was prescribed Augmentin by his PCP at least more than 1 week, but patient continued to have lower back pain, suspected UTI did not resolved, getting worse that prompted this visit. Patient was seen and evaluated in the ED, laboratory data shows WBC 8.3, platelets 319, sodium 131, potassium 5.4, BUN 40, creatinine 1.53, GFR 54, glucose 451, calcium 11.5, AST 31, ALT 50, C-reactive protein 15.62. Patient was started on IV antibiotic regimen Rocephin, please see medication orders section in the computer. On my assessment, patient denied chest pain, no headache, no dizziness, no shortness of breaths, no nausea, no vomiting, no fever, no chills. Patient was admitted for further evaluation and medical management. Past Medical History DM, hypertension, Kidney stones, Hyperlipidemia, Paraplegia Past Surgical History Spine surgery Family History Reviewed, noncontributory to the management of this case. Past Social History The patient lives at home with his father and daughter, denies smoking, no alcohol or illicit drugs abuse. Review of Systems Constitutional: Yes: Weakness; No: Fever, Chills, Sweats, Malaise, Other Eyes: No: Pain, Vision change, Conjunctivae inflammation, Eyelid inflammation, Other, Redness ENT: No: Ear pain, Ear discharge, Nose pain, Nose discharge, Nose congestion, Mouth pain, Mouth swelling, Throat pain, Throat swelling, Other Respiratory: No: Cough, Dry, Shortness of breath, SOB with excertion, Wheezing, Hemoptysis, Pleuritic Pain, Sputum, Wheezing, Other Cardiovascular: No: Chest Pain, Palpitations, Orthopnea, Paroxysmal Noc. Dyspnea, Edema, Lt Headedness, Other Gastrointestinal: No: Nausea, Vomiting, Abdominal Pain, Diarrhea, Constipation, Melena, Hematochezia, Other Genitourinary: No Dysuria, No Frequency, No Incontinence, No Hematuria, No Retention; Other (Machuca catheter in place) Musculoskeletal: back pain (Lower); No: other, neck pain, shoulder pain, arm pain, hand pain, leg pain, foot pain Skin: No: Rash, Lesions, Jaundice, Bruising, Other Neurological: Other (Paraplegia); No: Weakness, Numbness, Incoordination, Change in speech, Confusion, Seizures Allergies: Coded Allergies: NO KNOWN ALLERGIES (Unverified , 12/20/23) Medications Current Medications Medications Dose Ordered Sig/Dottie Route Start Time Stop Time Status Last Admin Dose Admin Ceftriaxone Sodium 50 ml @ 100 mls/hr DAILY@2100 IV 06/04/24 21:00 Diagnostic Test (Pha) 1 strip IQ4HR 06/04/24 00:00 Insulin Human Regular IQ4HR SC 06/04/24 00:00 Dextrose 50 ml UD PRN IV 06/03/24 22:45 Sodium Chloride 1,000 ml @ 120 mls/hr Q8H20M IV 06/03/24 22:45 Acetaminophen/ Hydrocodone Bitart 1 tab Q4HP PRN PO 06/03/24 22:45 Ondansetron HCl 4 mg Q4HP PRN IV 06/03/24 22:45 Docusate Sodium 100 mg BIDPRN PRN PO 06/03/24 22:45 Acetaminophen 650 mg Q6HP PRN PO 06/03/24 22:45 Exam Vital Signs Vital Signs Date Time Temp Pulse Resp B/P (MAP) Pulse Ox O2 Delivery O2 Flow Rate FiO2 06/03/24 21:48 96 16 94 Room Air* 0 21 06/03/24 21:39 99.0 114/68 (83) 99.0 General Appearance: Alert, Oriented X3, Cooperative, No acute distress HEENT: Atraumatic, PERRLA, EOMI, Mucous membr. moist/pink Respiratory: Normal air movement Cardiovascular: Regular rate, Normal S1, Normal S2, No murmurs Abdominal: Normal bowel sounds, Soft, No tenderness, No hepatospenomegaly, No masses Extremities: No clubbing, No cyanosis, No edema, Normal pulses, No tenderness/swelling Skin: No rashes, No breakdown, No significant lesion Neuro: Normal speech, Normal tone, Sensation intact, Cranial nerves 3-12 NL, Reflexes 2+, Other (Paraplegia) Psych/Mental Status: Mental status NL, Mood NL Labs/Xrays Labs Test 06/03/24 21:50 06/03/24 19:42 Range/Units POC Glucose 395 H 70-106 mg/dl White Blood Count 8.3 4.4-10.8 10^3/uL Red Blood Count 5.66 4.5-5.90 10^6/uL Hemoglobin 14.8 13.5-17.5 g/dL Hematocrit 46.3 41.0-53.0 % Mean Corpuscular Volume 81.8 80.0-100.0 fL Mean Corpuscular Hemoglobin 26.1 L 28.0-32.0 pg Mean Corpuscular Hemoglobin Concent 31.9 L 32.0-36.0 g/dL Red Cell Distribution Width 16.5 H 11.8-14.3 % Platelet Count 319 140-450 10^3/uL Mean Platelet Volume 8.2 6.9-10.8 fL Neutrophils (%) (Auto) 77.8 37.0-80.0 % Lymphocytes (%) (Auto) 8.6 L 10.0-50.0 % Monocytes (%) (Auto) 10.1 0.0-12.0 % Eosinophils (%) (Auto) 3.0 0.0-7.0 % Basophils (%) (Auto) 0.5 0.0-2.0 % Neutrophils # (Auto) 6.5 1.6-8.6 10 ^3/uL Lymphocytes # (Auto) 0.7 0.4-5.4 10 ^3/uL Monocytes # (Auto) 0.8 0-1.3 10 ^3/uL Eosinophils # (Auto) 0.3 0-0.8 10 ^3/uL Basophils # (Auto) 0 0-0.2 10 ^3/uL Nucleated Red Blood Cells 0.0 % Sodium Level 131 L 136-145 mmol/L Potassium Level 5.4 H 3.5-5.1 mmol/L Chloride Level 98 98-107 mmol/L Carbon Dioxide Level 21 20-31 mmol/L Anion Gap 12 5-15 Blood Urea Nitrogen 40 H 9-23 mg/dL Creatinine 1.53 H 0.700-1.30 mg/dL Glomerular Filtration Rate Calc 54 >90 mL/min BUN/Creatinine Ratio 26.1 H 10.0-20.0 Serum Glucose 451 *H 74-106 mg/dL Lactic Acid Level 1.6 0.4-2.0 mmol/L Calcium Level 11.5 H 8.7-10.4 mg/dL Total Bilirubin 0.4 0.2-1.0 mg/dL Aspartate Amino Transferase (AST) 31 13-40 U/L Alanine Aminotransferase (ALT) 50 H 7-40 U/L Alkaline Phosphatase 162 H 46-116 U/L C-Reactive Protein High Sensitivity 15.62 H <1.0 mg/dL Total Protein 7.9 5.7-8.2 g/dL Albumin 4.2 3.2-4.8 g/dL Assessment/Plan Assessment/Plan UTI (urinary tract infection) Lower back pain Electrolyte imbalance Uncontrolled diabetes mellitus Diabetes mellitus with hyperglycemia Plan 1. Admit to telemetry unit 2. Breathing treatment 3. Pain control management 4. IV antibiotic management 5. Management of fluids and electrolytes 6. Consultation for hospitalist 7. Diagnostic test chest x-ray 8. DVT prophylaxis-on SCDs 9. Repeat labs CBC, CMP in a.m. 10. Home medication reviewed and reconciled 11. Continue with current medical management 12. Treatment plan discussed with patient and RN. Patient verbalized understanding. Plan discussed with: Patient, Other (RN) My Orders Orders - GUMARO HERNANDEZ DNP Procedure Category Date Status Time Ceftriaxone 1gm/50ml PHA 06/04/24 In Process D5w (Rocephin) 21:00 Consistent DIET 06/04/24 Transmitted Carb(Ccho)Diabetes Breakfast Glucose Blood PHA 06/04/24 In Process (Accu-Chek Comfort 00:00 Insulin R (Human) PHA 06/04/24 In Process (Insulin R) 00:00 Dextrose 50% Syringe PHA 06/03/24 In Process 22:45 Allergies DONNA 06/03/24 In Process 22:38 Code Status CODE 06/03/24 Transmitted 22:38 Sodium Chloride 0.9% PHA 06/03/24 In Process 22:45 Oxygen Per Hour RT 06/03/24 Transmitted 22:38 Hydrocodone-Acet PHA 06/03/24 In Process 5/325mg Tab (Abie 22:45 Ondansetron Hcl PHA 06/03/24 In Process (Zofran) 22:45 Docusate Sodium PHA 06/03/24 In Process Capsule (Colace 22:45 Complete Blood Count LAB 06/04/24 Verified 04:00 Comprehensive LAB 06/04/24 Verified Metabolic Panel 04:00 Condition: Serious DONNA 06/03/24 In Process 22:38 Acetaminophen Tablet PHA 06/03/24 In Process (Tylenol Tablet) 22:45 Bedrest With Bathroom DONNA 06/03/24 In Process Privileg 22:38 Sequential DONNA 06/03/24 In Process Compression Device Problem List: (1) UTI (urinary tract infection) (2) Lower back pain (3) Electrolyte imbalance (4) Uncontrolled diabetes mellitus (5) Diabetes mellitus with hyperglycemia Date of Service: Jun 03, 2024 Billing Provider: GUMARO HERNANDEZ DNP Common Visit Codes: [id number] INP/OBS CARE (HIGH) GUMARO HERNANDEZ DNP Jun 03, 2024 23:18
[2024-06-03 23:30] VITALS: PULSE 96; RESP 12; O2SAT 96
[2024-06-04] VITALS (9 sets, daily range): BP systolic 119–154; BP diastolic 70–83; PULSE 75–90; RESP 15–18; TEMP 97.5–98.4; O2SAT 93–100
[2024-06-04] MEDS: InsuLIN REG 1unit/0.01ml Soln (100units/ml) SC SCH
[2024-06-04] MEDS: SODIUM CHLORIDE 0.9% 1,000 ML IV SCH (01:23)
[2024-06-04] MEDS: SODIUM ZIRCONIUM CYCL 10 GM PAK PO ONE (01:23)
[2024-06-04 01:38] LABS: Urine Bacteria None Seen /hpf (None Seen)
[2024-06-04 02:19] LABS: Urine Blood 2+ /uL (Negative); Urine Budding Yeast FEW /hpf (None Seen); Urine Clarity Ex.Turbid (Clear); Urine Color Dark-Brown (Yellow); Urine Protein, UAD 1+ (Negative); Urine Specific Gravity 1.019 (1.001-1.035); Urine Squamous Epithelial Cell None Seen /hpf (<5); Urine Urobilinogen Normal (Negative); Urine WBC 1987 /HPF (0-3); Urine WBC Clumps PRESENT /hpf (None Seen); Urine pH 5.5 (5.0-9.0)
[2024-06-04] MEDS ORDERED: ASPI-543 PO (04:54)
[2024-06-04] MEDS ORDERED: METO-159 PO (04:54)
[2024-06-04] MEDS ORDERED: SENN-58 PO (04:54)
[2024-06-04] MEDS ORDERED: DOCU-94 PO (04:54)
[2024-06-04] MEDS ORDERED: PIO30T PO ×2 (04:54)
[2024-06-04] MEDS ORDERED: DAPA10TA3 PO (04:54)
[2024-06-04] MEDS ORDERED: GLIP10TA9 PO (04:54)
[2024-06-04] MEDS ORDERED: GABA-1250 PO (04:54)
[2024-06-04] MEDS ORDERED: AMOX500T86 PO (04:54)
[2024-06-04] MEDS ORDERED: METH-1182 PO (04:54)
[2024-06-04] MEDS ORDERED: POTA8TAB38 PO (04:54)
[2024-06-04] MEDS ORDERED: METF-370 PO (04:54)
[2024-06-04] MEDS ORDERED: INSU100I70 SC ×2 (04:54)
[2024-06-04] MEDS ORDERED: FAMO-12 PO (04:54)
[2024-06-04 06:06] LABS: Basophils # (auto) 0 10 ^3/uL (0-0.2); Basophils % (auto) 0.3 % (0.0-2.0); Eosinophils # (auto) 0.3 10 ^3/uL (0-0.8); Hemoglobin 13.1 g/dL (13.5-17.5); Neutrophils # (auto) 5.6 10 ^3/uL (1.6-8.6); Neutrophils % (auto) 72.3 % (37.0-80.0)
[2024-06-04 06:08] LABS: Eosinophils % (auto) 3.4 % (0.0-7.0); Hematocrit 39.4 % (41.0-53.0); Lymphocytes # (auto) 0.9 10 ^3/uL (0.4-5.4); Lymphocytes % (auto) 11.7 % (10.0-50.0); Mean Corpuscular Hemoglobin 26.7 pg (28.0-32.0); Mean Corpuscular Hgb Conc. 33.3 g/dL (32.0-36.0); Mean Corpuscular Volume 80.4 fL (80.0-100.0); Monocytes # (auto) 0.9 10 ^3/uL (0-1.3); Monocytes % (auto) 12.3 % (0.0-12.0); Platelet Count (auto) 310 10^3/uL (140-450); Red Cell Distribution Width 16.4 % (11.8-14.3); White Blood Cell 7.7 10^3/uL (4.4-10.8)
[2024-06-04 06:20] LABS: Alanine Aminotransferase 37 U/L (7-40); Albumin 3.6 g/dL (3.2-4.8); Anion Gap 9 (5-15); Aspartate Aminotransferase 18 U/L (13-40); BUN/Creatinine Ratio 31.6 (10.0-20.0); Bilirubin, Total 0.3 mg/dL (0.2-1.0); Carbon Dioxide 22 mmol/L (20-31); Chloride 106 mmol/L (98-107); Potassium 4.3 mmol/L (3.5-5.1); Sodium 137 mmol/L (136-145); Total Protein 6.9 g/dL (5.7-8.2)
[2024-06-04 06:25] LABS: Alkaline Phosphatase 129 U/L (46-116); Blood Urea Nitrogen 36 mg/dL (9-23); Glucose 290 mg/dL (74-106)
[2024-06-04] MEDS: INSULIN LANTUS (GLARGINE) 1 /0.01ml (100units/ml) SC ONE (09:00)
[2024-06-04] MEDS: GABAPENTIN 300 MG CAP PO SCH (14:00)
--- NOTE | 2024-06-04 17:06 | DVHPNRES ---
Progress Note Date Seen: Jun 04, 2024 Resident Creating Document: JACLYN OWEN RESIDENT Medical Necessity Reason Pt with a Central, PICC or Fol: Yes The following are medically ne: Machuca Catheter Subjective Review of Systems Patient was a 53-year-old male with a past medical history as described below presented to the ED with a chief complaint of low back pain and generalized weakness for the past 1 week. Patient is bed-bound and paraplegic, has history of urinary tract infection in March when he was admitted to the hospital, urine culture grew E coli which were sensitive multiple drugs. Patient reports urinary and fecal incontinence. In the last week patient reported that he has become weak and needed increased assistance for moving around in the bed. Patient also reported of lower back pain. Patient was denied fever or chills, nausea or vomiting, no recent sick contacts, no shortness a breath or cough. Past medical history: Insulin-dependent Type 2 diabetes mellitus, kidney stones, hypertension Past surgical history: Spinal cord injury status post surgery in December 2023 Social history: Patient lives with the his family and denies smoking, alcohol, drug use Home medications: Insulin 33 units q.a.m., 46 units q.p.m., lisinopril 40 mg daily, metoprolol tartrate 100 mg b.i.d., furosemide 40 mg daily, clonidine 0.1 mg daily, aspirin 81 mg daily, gabapentin 300 mg p.o. t.i.d., metformin 1000 mg b.i.d., methocarbamol 750 mg t.i.d. p.r.n., rosuvastatin 5 mg p.o., senna 8.6 mg daily p.r.n., tamsulosin 0.4 mg daily, isosorbide mononitrate 30 mg daily Review of systems Patient seen and examined at the bedside Patient reported feeling weak, denied fever or chills, shortness of breath, chest pain, abdominal pain. Has urinary and fecal incontinence. Objective vital signs Vital Sign Date Time Temp Pulse Resp B/P (MAP) Pulse Ox O2 Delivery O2 Flow Rate FiO2 06/04/24 16:58 98.1 75 17 133/74 (93) 93 98.1 06/04/24 08:20 Room Air* 0 21 Total Intake and Output 06/03/24 06/03/24 06/04/24 15:00 23:00 07:00 Intake Total 1050 ml 200 ml Output Total 1000 ml Balance 1050 ml -800 ml medications Current Medications Medications Dose Ordered Sig/Dottie Route Start Time Stop Time Status Last Admin Dose Admin Ceftriaxone Sodium 50 ml @ 100 mls/hr DAILY@2100 IV 06/04/24 21:00 Sodium Chloride 1,000 ml @ 120 mls/hr Q8H20M IV 06/03/24 22:45 06/04/24 15:28 120 MLS/HR Acetaminophen/ Hydrocodone Bitart 1 tab Q4HP PRN PO 06/03/24 22:45 Ondansetron HCl 4 mg Q4HP PRN IV 06/03/24 22:45 Acetaminophen 650 mg Q6HP PRN PO 06/03/24 22:45 Amlodipine Besylate 5 mg DAILY PO 06/05/24 10:00 Gabapentin 300 mg TID PO 06/04/24 14:00 06/04/24 14:00 300 MG Insulin Glargine 25 units HS SC 06/04/24 22:00 Insulin Glargine 20 units QAM SC 06/05/24 08:00 Diagnostic Test (Pha) 1 strip ACHS 06/04/24 22:00 UNV Insulin Human Regular AC SC 06/05/24 07:00 UNV Dextrose 50 ml UD PRN IV 06/04/24 17:15 UNV Examination Constitutional: patient was alert and oriented to time, place and person does not appear to be in acute distress Gen - no pallor, no icterus, no cyanosis, no clubbing, no LAD, no edema . Skin - Patients skin is warm and dry. HEENT - normocephalic, atraumatic, dry mucous membranes. Neck - full ROM, no LAD, no JVD Pulmonary - B/L equal breath sounds, no crackles , no wheezing, no stridor. cardiovascular - variable S1,S2 heard. No added sounds, no murmurs heard. GI - soft abdomen without tenderness to deep palpation . no hepatospleenomegaly. Bowel sounds normoactive Neurological - Bilateral upper extremity strength 5/5, paraplegia with no sensation and bilateral lower extremity strength 1/5, no facial droop, normal speech, no tremor, no sensory deficiets. laboratory and microbiology Laboratory Tests 06/04/24 05:40 Test 06/04/24 05:40 Range/Units Serum Glucose 290 #H 74-106 mg/dL Problem List/Assessment/Plan Problem List/Assessment/Plan Assessment Urinary tract infection likely complicated Sacral ulcer grade 2 Uncontrolled insulin-dependent type 2 diabetes mellitus Hypertensive heart disease Lower back pain Urine cultures pending blood cultures after 24 hours. showed no growth Sacral wound culture pending Plan - IV antibiotics ceftriaxone - IV fluids - started on a lower dose of insulin as compared to home, insulin Lantus 25 units q.a.m. and 35 units q.h.s., will be exaclated - started on a lower dose of antihypertensive medications with amlodipine 10 mg, other medications will be started as needed - wound care for the sacral ulcer DVT prophylaxis: enoxaparin Goals of care discussed with the patient for over 25 mins. Full code Plan discussed with Plan discussed with: Patient My Orders My Orders Orders - JACLYN OWEN Procedure Category Date Status Time Amlodipine Tablet PHA 06/05/24 In Process (Norvasc Tablet) 10:00 Gabapentin Capsule PHA 06/04/24 In Process (Neurontin Capsule) 14:00 Insulin Lantus PHA 06/04/24 In Process (Glargine) (Lantus) 22:00 Insulin Lantus PHA 06/05/24 In Process (Glargine) (Lantus) 08:00 Wound Culture W/ Gs SOBIA 06/04/24 In Process 14:30 Apply Barrier Cream DONNA 06/04/24 In Process 11:25 Glucose Blood PHA 06/04/24 Transmitted (Accu-Chek Comfort 22:00 Moderate Insulin Ss PHA 06/05/24 Transmitted 07:00 Dextrose 50% Syringe PHA 06/04/24 Transmitted 17:15 Dietary Evaluation Review Comments: 1) Consider CCHO 75gm + Cardiac diet 2) Be 1 pk BID, VitC 500mg BID, Zinc sulfate 220mg x 10 days & MVI w/ Minerals 1 tab daily 3) Refer Charge Preparation Technician on DC 4) Continue current plan of care Expected Outcomes/Goals: Pt will meet >75% estimated needs Fu 3-5 days JACLYN OWEN RESIDENT Jun 04, 2024 17:06
[2024-06-04] MEDS ORDERED: DEXTROSE (50%) 50ML SYRG IV PRN (17:15)
[2024-06-04] MEDS: INSULIN LANTUS (GLARGINE) 1 /0.01ml (100units/ml) SC SCH (20:41)
[2024-06-04] MEDS: cefTRIAXone 1GM/50ML D5W 50 ML IV SCH (20:57)
[2024-06-04] MEDS: ACCU-CHEK COMFORT CURVE STRIP VI SCH ×2 (20:58)
[2024-06-05] VITALS (8 sets, daily range): BP systolic 116–147; BP diastolic 70–97; PULSE 62–97; RESP 16–19; TEMP 97.6–98.4; O2SAT 94–99
[2024-06-05] MEDS: InsuLIN REG 1unit/0.01ml Soln (100units/ml) SC SCH ×2 (06:18→12:32)
[2024-06-05 07:54] LABS: Basophils # (auto) 0 10 ^3/uL (0-0.2); Basophils % (auto) 0.4 % (0.0-2.0); Eosinophils # (auto) 0.3 10 ^3/uL (0-0.8); Hematocrit 39.4 % (41.0-53.0); Hemoglobin 13.1 g/dL (13.5-17.5); Lymphocytes % (auto) 11.1 % (10.0-50.0); Mean Corpuscular Hemoglobin 27.1 pg (28.0-32.0); Mean Corpuscular Hgb Conc. 33.3 g/dL (32.0-36.0); Mean Corpuscular Volume 81.2 fL (80.0-100.0); Neutrophils # (auto) 6.6 10 ^3/uL (1.6-8.6); Neutrophils % (auto) 74.5 % (37.0-80.0); Platelet Count (auto) 282 10^3/uL (140-450); Red Blood Cells 4.85 10^6/uL (4.5-5.90); Red Cell Distribution Width 16.1 % (11.8-14.3); White Blood Cell 8.9 10^3/uL (4.4-10.8)
[2024-06-05] MEDS ORDERED: INSULIN LANTUS (GLARGINE) 1 /0.01ml (100units/ml) SC SCH ×3 (08:00→22:00)
[2024-06-05 08:11] LABS: Anion Gap 13 (5-15); Chloride 103 mmol/L (98-107); Potassium 4.4 mmol/L (3.5-5.1)
[2024-06-05 08:12] LABS: Carbon Dioxide 19 mmol/L (20-31); Sodium 135 mmol/L (136-145)
[2024-06-05 08:13] LABS: Calcium 10.8 mg/dL (8.7-10.4)
[2024-06-05 08:17] LABS: BUN/Creatinine Ratio 23.5 (10.0-20.0); Blood Urea Nitrogen 24 mg/dL (9-23); Glucose 258 mg/dL (74-106)
[2024-06-05] MEDS: INSULIN LANTUS (GLARGINE) 1 /0.01ml (100units/ml) SC SCH ×2 (09:00→22:11)
[2024-06-05] MEDS ORDERED: DEXTROSE (50%) 50ML SYRG IV PRN (09:00)
[2024-06-05] MEDS: amLODIPine BESYLATE 5 MG TAB PO SCH (09:02)
[2024-06-05] MEDS ORDERED: amLODIPine BESYLATE 5 MG TAB PO SCH (10:00)
[2024-06-05] MEDS ORDERED: METHOCARBAMOL 500 MG TAB PO PRN (10:15)
[2024-06-05] MEDS: ENOXAPARIN SOD 40 MG/0.4 ML SYRINGE SC SCH (12:28)
[2024-06-05] MEDS: METOPROLOL TARTRATE 50 MG TAB PO ONE (12:28)
[2024-06-05] MEDS: ACCU-CHEK COMFORT CURVE STRIP VI SCH (12:34)
[2024-06-05] MEDS: METHOCARBAMOL 500 MG TAB PO SCH (13:41)
[2024-06-05] MEDS: HYDROcodone-ACET 5/325MG TAB PO PRN (15:47)
--- NOTE | 2024-06-05 16:43 | DVHPNRES ---
Progress Note Date Seen: Jun 05, 2024 Resident Creating Document: JACLYN OWEN RESIDENT Medical Necessity Reason Pt with a Central, PICC or Fol: Yes The following are medically ne: Machuca Catheter Subjective Review of Systems Patient seen and examined at the bedside Patient reported feeling better, denied fever or chills, shortness of breath, chest pain, abdominal pain. Has urinary and fecal incontinence. Objective vital signs Vital Sign Date Time Temp Pulse Resp B/P (MAP) Pulse Ox O2 Delivery O2 Flow Rate FiO2 06/05/24 12:41 97.6 81 16 138/76 (96) 94 97.6 06/05/24 08:00 Room Air* 0 21 Total Intake and Output 06/04/24 06/04/24 06/05/24 15:00 23:00 07:00 Intake Total 2895 ml 800 ml Output Total 1200 ml Balance 1695 ml 800 ml medications Current Medications Medications Dose Ordered Sig/Dottie Route Start Time Stop Time Status Last Admin Dose Admin Ceftriaxone Sodium 50 ml @ 100 mls/hr DAILY@2100 IV 06/04/24 21:00 06/04/24 20:57 100 MLS/HR Acetaminophen/ Hydrocodone Bitart 1 tab Q4HP PRN PO 06/03/24 22:45 06/05/24 15:47 1 TAB Ondansetron HCl 4 mg Q4HP PRN IV 06/03/24 22:45 Acetaminophen 650 mg Q6HP PRN PO 06/03/24 22:45 Gabapentin 300 mg TID PO 06/04/24 14:00 06/05/24 13:41 300 MG Amlodipine Besylate 10 mg DAILY PO 06/05/24 10:00 06/05/24 09:02 10 MG Diagnostic Test (Pha) 1 strip Q6HR 06/05/24 12:00 06/05/24 12:34 1 STRIP Insulin Human Regular Q6HR SC 06/05/24 12:00 06/05/24 12:32 16 UNITS Dextrose 50 ml UD PRN IV 06/05/24 09:00 Enoxaparin Sodium 40 mg DAILY SC 06/05/24 10:00 06/05/24 12:28 40 MG Insulin Glargine 35 units HS SC 06/05/24 22:00 Metoprolol Tartrate 50 mg BID PO 06/05/24 22:00 Methocarbamol 750 mg TID PO 06/05/24 14:00 06/05/24 13:41 750 MG Insulin Glargine 25 units DAILY@1000 SC 06/06/24 10:00 UNV Examination Constitutional: patient was alert and oriented to time, place and person does not appear to be in acute distress Gen - no pallor, no icterus, no cyanosis, no clubbing, no LAD, no edema . Skin - Patients skin is warm and dry. HEENT - normocephalic, atraumatic, dry mucous membranes. Neck - full ROM, no LAD, no JVD Pulmonary - B/L equal breath sounds, no crackles , no wheezing, no stridor. cardiovascular - variable S1,S2 heard. No added sounds, no murmurs heard. GI - soft abdomen without tenderness to deep palpation . no hepatospleenomegaly. Bowel sounds normoactive Neurological - Bilateral upper extremity strength 5/5, paraplegia with no sensation and bilateral lower extremity strength 1/5, no facial droop, normal speech, no tremor, no sensory deficiets. laboratory and microbiology Laboratory Tests 06/05/24 07:08 Test 06/05/24 07:08 Range/Units Serum Glucose 258 H 74-106 mg/dL Microbiology Date/Time Source Procedure Growth Status 06/04/24 12:42 Sacrum Gram Stain - Final Resulted 06/04/24 12:42 Sacrum Wound Culture - Preliminary Resulted 06/04/24 01:35 Voided Urine Urine Culture - Preliminary Resulted 06/03/24 19:47 Blood Blood Culture - Preliminary NO GROWTH AFTER 24 HOURS OF INCUBATION. Resulted Problem List/Assessment/Plan Problem List/Assessment/Plan Assessment Urinary tract infection likely complicated Sacral ulcer grade 2 Uncontrolled insulin-dependent type 2 diabetes mellitus Hypertensive heart disease Lower back pain Urine cultures pending blood cultures after 24 hours. showed no growth Sacral wound culture pending Plan - IV antibiotics ceftriaxone - IV fluids - started on a lower dose of insulin as compared to home, insulin Lantus 25 units q.a.m. and 35 units q.h.s., will be exaclated - started on a lower dose of antihypertensive medications with amlodipine 10 mg, metoprolol tartarate 50mgbid - methocarbamol 750mg tid for muscle cramps - wound care for the sacral ulcer DVT prophylaxis: enoxaparin Goals of care discussed with the patient for over 25 mins. Full code Plan discussed with Plan discussed with: Patient My Orders My Orders Orders - JACLYN OWEN Procedure Category Date Status Time Amlodipine Tablet PHA 06/05/24 In Process (Norvasc Tablet) 10:00 Glucose Blood PHA 06/05/24 In Process (Accu-Chek Comfort 12:00 Insulin R (Human) PHA 06/05/24 In Process (Insulin R) 12:00 Dextrose 50% Syringe PHA 06/05/24 In Process 09:00 Enoxaparin Sodium PHA 06/05/24 In Process (Lovenox) 10:00 Insulin Lantus PHA 06/05/24 In Process (Glargine) (Lantus) 22:00 Metoprolol Tartrate PHA 06/05/24 In Process Tablet (Lopressor Ta 22:00 Methocarbamol PHA 06/05/24 In Process (Robaxin) 14:00 Insulin Lantus PHA 06/06/24 Logged (Glargine) (Lantus) 10:00 Dietary Evaluation Review Comments: 1) Consider CCHO 75gm + Cardiac diet 2) Be 1 pk BID, VitC 500mg BID, Zinc sulfate 220mg x 10 days & MVI w/ Minerals 1 tab daily 3) Refer Receiving And Processing Supervisor on DC 4) Continue current plan of care Expected Outcomes/Goals: Pt will meet >75% estimated needs Fu 3-5 days Date of Service: Jun 05, 2024 Billing Provider: SHANE SOLORIO MD Common Visit Codes: [id number] INP/OBS CARE(HIGH) JACLYN OWEN RESIDENT Jun 05, 2024 16:43 SHANE SOLORIO MD Jun 07, 2024 08:19
[2024-06-05] MEDS: METOPROLOL TARTRATE 50 MG TAB PO SCH (22:04)
[2024-06-06] VITALS (8 sets, daily range): BP systolic 112–119; BP diastolic 64–72; PULSE 64–84; RESP 16–19; TEMP 97.8–98.3; O2SAT 95–96
[2024-06-06 08:22] LABS: Basophils # (auto) 0 10 ^3/uL (0-0.2); Eosinophils # (auto) 0.4 10 ^3/uL (0-0.8); Hemoglobin 13.2 g/dL (13.5-17.5); Mean Corpuscular Hemoglobin 26.9 pg (28.0-32.0); Monocytes # (auto) 0.9 10 ^3/uL (0-1.3); Neutrophils # (auto) 5.1 10 ^3/uL (1.6-8.6)
[2024-06-06 08:24] LABS: Basophils % (auto) 0.4 % (0.0-2.0); Eosinophils % (auto) 5.2 % (0.0-7.0); Hematocrit 39.2 % (41.0-53.0); Lymphocytes % (auto) 13.8 % (10.0-50.0); Mean Corpuscular Hgb Conc. 33.7 g/dL (32.0-36.0); Neutrophils % (auto) 68.6 % (37.0-80.0); Platelet Count (auto) 266 10^3/uL (140-450); Red Blood Cells 4.89 10^6/uL (4.5-5.90); Red Cell Distribution Width 16.1 % (11.8-14.3); White Blood Cell 7.5 10^3/uL (4.4-10.8)
[2024-06-06 08:29] LABS: Chloride 104 mmol/L (98-107); Potassium 4.3 mmol/L (3.5-5.1)
[2024-06-06 08:30] LABS: Anion Gap 8 (5-15); Carbon Dioxide 23 mmol/L (20-31)
[2024-06-06 08:31] LABS: Calcium 10.8 mg/dL (8.7-10.4); Sodium 135 mmol/L (136-145)
[2024-06-06 08:35] LABS: BUN/Creatinine Ratio 22.5 (10.0-20.0); Blood Urea Nitrogen 23 mg/dL (9-23)
[2024-06-06 08:36] LABS: Glucose 235 mg/dL (74-106)
[2024-06-06] MEDS: INSULIN LANTUS (GLARGINE) 1 /0.01ml (100units/ml) SC SCH (09:46)
--- NOTE | 2024-06-06 17:14 | DVHPNRES ---
Progress Note Date Seen: Jun 06, 2024 Resident Creating Document: OLIVIER TEMPLETON RESIDENT Medical Necessity Reason Pt with a Central, PICC or Fol: Yes The following are medically ne: Machuca Catheter Subjective Review of Systems The patient is a paraplegic who today reports no significant changes in overall status, except for worsening lower back pain. A physical therapy evaluation has been ordered to assess mobility and support needs. He continues treatment for a urinary tract infection with ceftriaxone. CBC is within normal limits, though blood glucose remains elevated. The patient is currently tolerating diet well, including carbohydrates. Wound care and physical therapy evaluation consultation has been requested, and we are awaiting final results from the wound, urine, and blood cultures. Patient reports: No new complaints Changes from previous H/P or p: No Changes Objective vital signs Vital Sign Date Time Temp Pulse Resp B/P (MAP) Pulse Ox O2 Delivery O2 Flow Rate FiO2 06/06/24 17:00 97.9 73 18 116/68 (84) 96 97.9 06/06/24 08:00 Room Air* 0 21 Total Intake and Output 06/05/24 06/05/24 06/06/24 15:00 23:00 07:00 Intake Total 1000 ml 900 ml Output Total 2050 ml 1200 ml Balance -1050 ml -300 ml medications Current Medications Medications Dose Ordered Sig/Dottie Route Start Time Stop Time Status Last Admin Dose Admin Ceftriaxone Sodium 50 ml @ 100 mls/hr DAILY@2100 IV 06/04/24 21:00 06/05/24 20:08 100 MLS/HR Acetaminophen/ Hydrocodone Bitart 1 tab Q4HP PRN PO 06/03/24 22:45 06/06/24 16:10 1 TAB Ondansetron HCl 4 mg Q4HP PRN IV 06/03/24 22:45 Acetaminophen 650 mg Q6HP PRN PO 06/03/24 22:45 Gabapentin 300 mg TID PO 06/04/24 14:00 06/06/24 13:35 300 MG Amlodipine Besylate 10 mg DAILY PO 06/05/24 10:00 06/06/24 09:09 10 MG Diagnostic Test (Pha) 1 strip Q6HR 06/05/24 12:00 06/06/24 11:44 1 STRIP Insulin Human Regular Q6HR SC 06/05/24 12:00 06/06/24 11:46 8 UNITS Dextrose 50 ml UD PRN IV 06/05/24 09:00 Enoxaparin Sodium 40 mg DAILY SC 06/05/24 10:00 06/06/24 09:09 40 MG Insulin Glargine 35 units HS SC 06/05/24 22:00 06/05/24 22:11 35 UNITS Metoprolol Tartrate 50 mg BID PO 06/05/24 22:00 06/06/24 09:08 50 MG Methocarbamol 750 mg TID PO 06/05/24 14:00 06/06/24 13:36 750 MG Insulin Glargine 25 units DAILY@1000 SC 06/06/24 10:00 06/06/24 09:46 25 UNITS Examination: GENERAL:Normal, HEENT:Normal, NECK:Normal, LUNGS:Normal, CVS:Normal, ABDOMEN:Normal, MSK:Abnormal, SKIN:Abnormal, NEURO:Normal, :Normal laboratory and microbiology Laboratory Tests 06/06/24 07:43 Test 06/06/24 07:43 Range/Units Serum Glucose 235 H 74-106 mg/dL Microbiology Date/Time Source Procedure Growth Status 06/04/24 12:42 Sacrum Gram Stain - Final Resulted 06/04/24 12:42 Sacrum Wound Culture - Preliminary Resulted 06/04/24 01:35 Voided Urine Urine Culture - Preliminary Resulted 06/03/24 19:47 Blood Blood Culture - Preliminary NO GROWTH AFTER 48 HOURS OF INCUBATION. Resulted Problem List/Assessment/Plan Problem List/Assessment/Plan Assessment Urinary tract infection likely complicated Sacral ulcer grade 2 Uncontrolled insulin-dependent type 2 diabetes mellitus Hypertensive heart disease Lower back pain Paraplegic Plan - IV antibiotics ceftriaxone - IV fluids - started on a lower dose of insulin as compared to home, insulin Lantus 25 units q.a.m. and 35 units q.h.s. - started on a lower dose of antihypertensive medications with amlodipine 10 mg, metoprolol tartrate 50mg bid - methocarbamol 750mg tid for muscle cramps - wound care for the sacral ulcer - Urine cultures pending - blood cultures after 24 hours. showed no growth - Sacral wound culture pending - Physical therapy evaluation DVT prophylaxis: enoxaparin Goals of care discussed with the patient for over 25 mins. Full code Plan discussed with Plan discussed with: Patient My Orders My Orders Orders - OLIVIER TEMPLETON RESIDENT Procedure Category Date Status Time Pt Request For Service PT 06/06/24 Logged 14:56 Dietary Evaluation Review Comments: 1) Consider CCHO 75gm + Cardiac diet 2) Be 1 pk BID, VitC 500mg BID, Zinc sulfate 220mg x 10 days & MVI w/ Minerals 1 tab daily 3) Refer Video Conference Specialist on DC 4) Continue current plan of care Expected Outcomes/Goals: Pt will meet >75% estimated needs Fu 3-5 days Date of Service: Jun 06, 2024 Billing Provider: SHANE SOLORIO MD Common Visit Codes: [id number] INP/OBS CARE(HIGH) OLIVIER TEMPLETON RESIDENT Jun 06, 2024 17:14 SHANE SOLORIO MD Jun 07, 2024 08:21
[2024-06-07] VITALS (8 sets, daily range): BP systolic 102–123; BP diastolic 55–66; PULSE 61–83; RESP 16–19; TEMP 97.4–98.1; O2SAT 94–97
[2024-06-07 06:45] LABS: Potassium 4.5 mmol/L (3.5-5.1); Sodium 137 mmol/L (136-145)
[2024-06-07 06:46] LABS: Anion Gap 5 (5-15); Calcium 10.7 mg/dL (8.7-10.4); Carbon Dioxide 25 mmol/L (20-31); Chloride 107 mmol/L (98-107)
[2024-06-07 06:50] LABS: Basophils # (auto) 0 10 ^3/uL (0-0.2); Eosinophils # (auto) 0.4 10 ^3/uL (0-0.8); Hemoglobin 13.2 g/dL (13.5-17.5); Lymphocytes # (auto) 1.1 10 ^3/uL (0.4-5.4); Neutrophils # (auto) 4.4 10 ^3/uL (1.6-8.6)
[2024-06-07 06:51] LABS: BUN/Creatinine Ratio 18.9 (10.0-20.0); Blood Urea Nitrogen 20 mg/dL (9-23); Glucose 203 mg/dL (74-106)
[2024-06-07 06:53] LABS: Basophils % (auto) 0.3 % (0.0-2.0); Eosinophils % (auto) 5.8 % (0.0-7.0); Hematocrit 41.4 % (41.0-53.0); Lymphocytes % (auto) 16.2 % (10.0-50.0); Mean Corpuscular Hemoglobin 26.5 pg (28.0-32.0); Mean Corpuscular Hgb Conc. 31.9 g/dL (32.0-36.0); Monocytes # (auto) 0.8 10 ^3/uL (0-1.3); Monocytes % (auto) 12.6 % (0.0-12.0); Neutrophils % (auto) 65.1 % (37.0-80.0); Platelet Count (auto) 268 10^3/uL (140-450); Red Blood Cells 4.99 10^6/uL (4.5-5.90); Red Cell Distribution Width 16.3 % (11.8-14.3); White Blood Cell 6.7 10^3/uL (4.4-10.8)
--- NOTE | 2024-06-07 19:05 | DVHPNRES ---
Progress Note Date Seen: Jun 07, 2024 Resident Creating Document: JACLYN OWEN RESIDENT Medical Necessity Reason Pt with a Central, PICC or Fol: Yes The following are medically ne: [place] Catheter Subjective Review of Systems Patient was seen and examined at the bedside No acute complaints overnight Objective vital signs Vital Sign Date Time Temp Pulse Resp B/P (MAP) Pulse Ox O2 Delivery O2 Flow Rate FiO2 06/07/24 16:58 97.8 68 16 116/59 (78) 96 97.8 06/06/24 20:00 Room Air* 0 21 Total Intake and Output 06/06/24 06/06/24 06/07/24 15:00 23:00 07:00 Intake Total 1370 ml 500 ml Output Total 1700 ml 1300 ml Balance -330 ml -800 ml medications Current Medications Medications Dose Ordered Sig/Dottie Route Start Time Stop Time Status Last Admin Dose Admin Ceftriaxone Sodium 50 ml @ 100 mls/hr DAILY@2100 IV 06/04/24 21:00 06/06/24 21:20 100 MLS/HR Acetaminophen/ Hydrocodone Bitart 1 tab Q4HP PRN PO 06/03/24 22:45 06/07/24 08:42 1 TAB Ondansetron HCl 4 mg Q4HP PRN IV 06/03/24 22:45 Acetaminophen 650 mg Q6HP PRN PO 06/03/24 22:45 Gabapentin 300 mg TID PO 06/04/24 14:00 06/07/24 13:30 300 MG Amlodipine Besylate 10 mg DAILY PO 06/05/24 10:00 06/07/24 08:43 10 MG Diagnostic Test (Pha) 1 strip Q6HR 06/05/24 12:00 06/07/24 18:21 1 STRIP Insulin Human Regular Q6HR SC 06/05/24 12:00 06/07/24 18:21 12 UNITS Dextrose 50 ml UD PRN IV 06/05/24 09:00 Enoxaparin Sodium 40 mg DAILY SC 06/05/24 10:00 06/07/24 08:44 40 MG Insulin Glargine 35 units HS SC 06/05/24 22:00 06/06/24 21:31 35 UNITS Metoprolol Tartrate 50 mg BID PO 06/05/24 22:00 06/07/24 08:43 50 MG Methocarbamol 750 mg TID PO 06/05/24 14:00 06/07/24 13:31 750 MG Insulin Glargine 25 units DAILY@1000 SC 06/06/24 10:00 06/07/24 10:29 25 UNITS Examination Constitutional: patient was alert and oriented to time, place and person does not appear to be in acute distress Gen - no pallor, no icterus, no cyanosis, no clubbing, no LAD, no edema . Skin - Patients skin is warm and dry. HEENT - normocephalic, atraumatic, dry mucous membranes. Neck - full ROM, no LAD, no JVD Pulmonary - B/L equal breath sounds, no crackles , no wheezing, no stridor. cardiovascular - variable S1,S2 heard. No added sounds, no murmurs heard. GI - soft abdomen without tenderness to deep palpation . no hepatospleenomegaly. Bowel sounds normoactive Neurological - Bilateral upper extremity strength 5/5, paraplegia with no sensation and bilateral lower extremity strength 1/5, no facial droop, normal speech, no tremor, no sensory deficiets. laboratory and microbiology Laboratory Tests 06/07/24 06:06 Test 06/07/24 06:06 Range/Units Serum Glucose 203 H 74-106 mg/dL Microbiology Date/Time Source Procedure Growth Status 06/04/24 12:42 Sacrum Gram Stain - Final Complete 06/04/24 12:42 Wound Culture - Final Klebsiella pneumoniae Yeast, not Renata albicans Complete 06/04/24 01:35 Voided Urine Urine Culture - Final Yeast, not Renata albicans Complete 06/03/24 19:47 Blood Blood Culture - Preliminary NO GROWTH AFTER 72 HOURS OF INCUBATION. Resulted Problem List/Assessment/Plan Problem List/Assessment/Plan Assessment Urinary tract infection likely complicated Sacral ulcer grade 2 Uncontrolled insulin-dependent type 2 diabetes mellitus Hypertensive heart disease Lower back pain Urine cultures showed growth of yeast more than [id number] colony-forming units/ml blood cultures after 72 hours showed no growth Sacral wound culture shows Klebsiella pneumoniae sensitive to ceftriaxone Plan - IV antibiotics ceftriaxone - IV fluids - started on a lower dose of insulin as compared to home, insulin Lantus 25 units q.a.m. and 35 units q.h.s., will be exaclated - started on a lower dose of antihypertensive medications with amlodipine 10 mg, metoprolol tartarate 50mgbid - methocarbamol 750mg tid for muscle cramps - wound care for the sacral ulcer DVT prophylaxis: enoxaparin Goals of care discussed with the patient for over 25 mins. Full code Plan discussed with Dr. Reaves Plan discussed with: Patient Dietary Evaluation Review Comments: 1) Consider CCHO 75gm + Cardiac diet 2) Be 1 pk BID, VitC 500mg BID, Zinc sulfate 220mg x 10 days & MVI w/ Minerals 1 tab daily 3) Refer Senior Controller on DC 4) Continue current plan of care Expected Outcomes/Goals: Pt will meet >75% estimated needs Fu 3-5 days JACLYN OWEN RESIDENT Jun 07, 2024 19:05
[2024-06-08] VITALS (7 sets, daily range): BP systolic 116–127; BP diastolic 55–65; PULSE 61–75; RESP 18–20; TEMP 97.6–98.3; O2SAT 94–97
[2024-06-08] MEDS ORDERED: CEFD300C2 PO (14:10)
[2024-06-08] MEDS ORDERED: FLUC200T50 PO (14:10)
[2024-06-08] MEDS ORDERED: SACC250C PO (14:10)
[2024-06-08] MEDS ORDERED: METO-159 PO (14:10)
[2024-06-08] MEDS ORDERED: CLON0.1T PO (14:10)
--- NOTE | 2024-06-08 20:03 | DVHDSRES ---
Discharge Summary Date of Admission Resident Creating Document: JACLYN OWEN RESIDENT Jun 03, 2024 at 23:12 Date of Discharge: Jun 08, 2024 Admitting Diagnosis UTI (urinary tract infection) Lower back pain Electrolyte imbalance Uncontrolled diabetes mellitus Diabetes mellitus with hyperglycemia Wounds: Sacral wound Labs/Diagnostic Data: Laboratory Results Test 06/08/24 12:09 06/07/24 06:06 06/04/24 05:40 06/04/24 01:35 POC Glucose 237 mg/dl (70-106) White Blood Count 6.7 10^3/uL (4.4-10.8) Red Blood Count 4.99 10^6/uL (4.5-5.90) Hemoglobin 13.2 g/dL (13.5-17.5) Hematocrit 41.4 % (41.0-53.0) Mean Corpuscular Volume 83.0 fL (80.0-100.0) Mean Corpuscular Hemoglobin 26.5 pg (28.0-32.0) Mean Corpuscular Hemoglobin Concent 31.9 g/dL (32.0-36.0) Red Cell Distribution Width 16.3 % (11.8-14.3) Platelet Count 268 10^3/uL (140-450) Mean Platelet Volume 8.0 fL (6.9-10.8) Neutrophils (%) (Auto) 65.1 % (37.0-80.0) Lymphocytes (%) (Auto) 16.2 % (10.0-50.0) Monocytes (%) (Auto) 12.6 % (0.0-12.0) Eosinophils (%) (Auto) 5.8 % (0.0-7.0) Basophils (%) (Auto) 0.3 % (0.0-2.0) Neutrophils # (Auto) 4.4 10 ^3/uL (1.6-8.6) Lymphocytes # (Auto) 1.1 10 ^3/uL (0.4-5.4) Monocytes # (Auto) 0.8 10 ^3/uL (0-1.3) Eosinophils # (Auto) 0.4 10 ^3/uL (0-0.8) Basophils # (Auto) 0 10 ^3/uL (0-0.2) Nucleated Red Blood Cells 0.0 % Sodium Level 137 mmol/L (136-145) Potassium Level 4.5 mmol/L (3.5-5.1) Chloride Level 107 mmol/L (98-107) Carbon Dioxide Level 25 mmol/L (20-31) Anion Gap 5 (5-15) Blood Urea Nitrogen 20 mg/dL (9-23) Creatinine 1.06 mg/dL (0.700-1.30) Glomerular Filtration Rate Calc 84 mL/min (>90) BUN/Creatinine Ratio 18.9 (10.0-20.0) Serum Glucose 203 mg/dL (74-106) Calcium Level 10.7 mg/dL (8.7-10.4) Hemoglobin A1c 9.7 % A1C (<5.7) Total Bilirubin 0.3 mg/dL (0.2-1.0) Aspartate Amino Transferase (AST) 18 U/L (13-40) Alanine Aminotransferase (ALT) 37 U/L (7-40) Alkaline Phosphatase 129 U/L (46-116) Total Protein 6.9 g/dL (5.7-8.2) Albumin 3.6 g/dL (3.2-4.8) Urine Color Dark-brown (Yellow) Urine Clarity Ex.turbid (Clear) Urine pH 5.5 (5.0-9.0) Urine Specific [place] 1.019 (1.001-1.035) Urine Protein 1+ (Negative) Urine Ketones 1+ (Negative) Urine Blood 2+ /uL (Negative) Urine Nitrite Negative (Negative) Urine Bilirubin Negative (Negative) Urine Urobilinogen Normal mg/dL (Negative) Urine Leukocyte Esterase 3+ /uL (Negative) Urine RBC 12 /hpf (0 - 3) Urine WBC Clumps Present /hpf (None Seen) Urine Microscopic WBC 1987 /HPF (0-3) Urine Squamous Epithelial Cells None seen /hpf (<5) Urine Bacteria None seen /hpf (None Seen) Urine Yeast (Budding) Few /hpf (None Seen) Urine Glucose 2+ mg/dL (Normal) Test 06/03/24 19:42 Lactic Acid Level 1.6 mmol/L (0.4-2.0) C-Reactive Protein High Sensitivity 15.62 mg/dL (<1.0) Other Laboratory Tests 06/07/24 06:06 Brief Hx & Hospital Course: HPI Patient was a 53-year-old male with a past medical history as described below presented to the ED with a chief complaint of low back pain and generalized weakness for the past 1 week. Patient is bed-bound and paraplegic, has history of urinary tract infection in March when he was admitted to the hospital, urine culture grew E coli which were sensitive multiple drugs. Patient reports urinary and fecal incontinence. In the last week patient reported that he has become weak and needed increased assistance for moving around in the bed. Patient also reported of lower back pain. Patient was denied fever or chills, nausea or vomiting, no recent sick contacts, no shortness a breath or cough. Past medical history: Insulin-dependent Type 2 diabetes mellitus, kidney stones, hypertension Past surgical history: Spinal cord injury status post surgery in December 2023 Social history: Patient lives with the his family and denies smoking, alcohol, drug use Home medications: Insulin 33 units q.a.m., 46 units q.p.m., lisinopril 40 mg daily, metoprolol tartrate 100 mg b.i.d., furosemide 40 mg daily, clonidine 0.1 mg daily, aspirin 81 mg daily, gabapentin 300 mg p.o. t.i.d., metformin 1000 mg b.i.d., methocarbamol 750 mg t.i.d. p.r.n., rosuvastatin 5 mg p.o., senna 8.6 mg daily p.r.n., tamsulosin 0.4 mg daily, isosorbide mononitrate 30 mg daily Brief hospital course and discharge plan Patient was in the hospital was is UTI following which a urine consult was sent. On examination there was a small 2 X 1 cm ulcer in the sacral area from which wound culture was sent. Patient's urine culture showed growth of yeast more than [id number] colony-forming units/ml and the patient's urine was turbid and cloudy following which he was placed on fluconazole 200 mg once daily for 14 days, cultures from the wound showed growth of Klebsiella which was sensitive to ceftriaxone and the patient was sent home on cefdinir 300 mg b.i.d. for 10 days. While in the hospital patient was started on a low dose of antihypertensive medication which was continued on discharged and patient was advised to continue with the same dosage as in the hospital to avoid hypotension. Patient was discharged in stable condition to home and advised regular running in the bed from [id number] to avoid continuous weight-bearing on the back. Patient was advised to follow up with the PCP in 1 week Consults/Reason for consult none Operations or Procedures none Condition at Discharge: Good Final Diagnosis/Problems List Urinary tract infection likely complicated Sacral ulcer grade 2 Uncontrolled insulin-dependent type 2 diabetes mellitus Hypertensive heart disease Lower back pain Discharge Disposition: Home with Health Services Discharge Instruct/Medications Diet: Consistent carbohydrate Activity: No Restrictions, As Tolerated Activity comment: advised regular turning side to side to avoid pressure ulcers Follow Up/Referral: Follow up with the PCP in 2 weeks. Medications: as per EMR Discharge Statement: "Patient was advised to return to the ER or call 911 if any headaches, dizziness, shortness of breath, chest pain, abdominal pain, bleeding, fevers, or worsening of medical condition. Patient was counseled about treatment plan, medications, possible side effects, patientverbalized understanding. All questions were answered to the best of my ability. This discharge took greater then 30 minutes in planning, reviewing documentation, counseling the patient, and discussing with other team members." ASSESSMENT ASSESSMENT Assessment Urinary tract infection likely complicated Sacral ulcer grade 2 Uncontrolled insulin-dependent type 2 diabetes mellitus Hypertensive heart disease Lower back pain JACLYN OWEN RESIDENT Jun 08, 2024 20:03
== END 2024-06-08 19:22 | disposition home health service (06) | DRG 690 ==
LOC: EDBD 19:19 → ER 19:19 → OVERFLOW 23:12 → TELE-WESTW 23:18
PROVIDERS: ADMIT Student in an Organized Health Care Education/Training Program; ATTEND Student in an Organized Health Care Education/Training Program
DX: N39.0 Urinary tract infection, site not specified (principal); E11.65 Type 2 diabetes mellitus with hyperglycemia; I11.9 Hypertensive heart disease without heart failure; E78.5 Hyperlipidemia, unspecified; L89.152 Pressure ulcer of sacral region, stage 2; Z74.01 Bed confinement status; Z79.2 Long term (current) use of antibiotics; Z79.899 Other long term (current) drug therapy; Z87.442 Personal history of urinary calculi
CPT/HCPCS: 36415; 80048; 80053; 81001; 82962; 83036; 83605; 85025; 86141; 87040; 87077; 87086; 87088; 87186; 87205; 96365; 96375; 97110; 97163; 97530; G0378; J1815